=== PATIENT | female | born 1955 | race Caucasian/White ===

== ENCOUNTER 2019-03-27 18:41 | Observation (INO) ==
[2019-03-27] MEDS ORDERED: Ondansetron 4 MG/2 ML VIAL IVP PRN (23:21)
[2019-03-27] MEDS ORDERED: Naloxone 0.4 MG/ML INJ IVP PRN (23:21)
[2019-03-27] MEDS ORDERED: *HR* LORazepam 2 MG/ML VIAL IVP PRN (23:28)
[2019-03-28] MEDS: Insulin LISPRO 300 UNITS/3 ML VIAL SQ SCH ×5 (00:15→21:56)
--- NOTE | 2019-03-28 01:59 | Internal Med History&Physical ---
Date of Encounter: 03/27/19 Time of Encounter: 20:30 Internal Medicine - H&P: HPI Chief complaint: palpitations Admitted From: Hospital to Hospital Transfer Plans for Post Hospital Care: Home History of present illness: Ms. Hayes is a 63 year old female who presents in transfer from [facility] for concerns of atrial flutter with rapid ventricular response. Patient noted having palpitations, lightheadedness and dizziness earlier tonight. She therefore went to the ER where she was found to have atrial flutter with rapid ventricular response. She was placed on Cardizem drip and transferred to [facility] for ongoing care. Upon my assessment of the patient, patient feels much better. She remains in atrial flutter, but she is rate controlled with heart rate in the 80s and 90s. She denies any chest pain, shortness of breath, fevers, cough, shortness of breath, vomiting, or diarrhea. Patient states she has a history of abnormal heart rhythm and was seeing a clerical proofreader in [place]. She actually has a loop recorder in place. She also states she has a history of cirrhosis but that it "resolved". She denies any history of alcohol abuse, ANGELO cirrhosis, or Tylenol toxicity. She used to see a gastroentereologist in [place], but she has not seen anybody in quite some time. She recently moved to [facility] and wants to establish with [facility]. Unfortunately, we have no old records regarding her prior workup. Past Med Surg Social Fam HX - Past Medical History Attestation: Yes The following information was validated with the patient. Source: patient, other (limited records from [place]) Medical history: arthritis, asthma, atrial fibrillation, cirrhosis, CHF, COPD, coronary artery disease, CVA, diabetes, hyperlipidemia, hypertension, renal disease, seizures, other Additional medical history: SLEEP APNEA, [place] Psychiatric history: anxiety, depression - Past Surgical History Surgical History: other Additional surgical history: Loop Recorder - Social History Smoking Status: Former smoker Smokeless Tobacco Status: No Alcohol use: none Drug use: none Current living situation: Home, With Family Activity Level: Independent ambulation Recent Out of Country Travel Within the Last 8 Weeks: No - Family History Mother Living Status: Hx Family Cardiac Disorders: Yes Hx Family Respiratory Disorders: Yes Hx Family Cancer: Yes Hx Family GI Disorders: Yes Hx Family Endocrine Disorder: Yes Internal Medicine - H&P: Meds Atorvastatin [Lipitor] 40 mg PO HS 01/29/19 [History] Duloxetine HCl [Cymbalta] 60 mg PO BID 01/29/19 [History] Ferrous Sulfate [Iron] 325 mg PO DAILY 01/29/19 [History] Furosemide [Lasix] 40 mg PO BID 01/29/19 [History] Insulin Degludec [Tresiba Flextouch U-200] 80 unit SQ DAILY 01/29/19 [History] Insulin LISPRO [Humalog] 4 unit SQ TID 01/29/19 [History] LORazepam [Ativan] 1 mg PO HS 01/29/19 [History] Linagliptin [Tradjenta] 5 mg PO DAILY 01/29/19 [History] Melatonin/Pyridoxine HCl (B6) [Melatonin 3 mg Tablet] 1 each PO HS 01/29/19 [History] Montelukast [Singulair] 10 mg PO DAILY 01/29/19 [History] Pantoprazole Sodium 40 mg PO DAILY 01/29/19 [History] Ropinirole HCl [Requip] 2 mg PO TID 01/29/19 [History] Solifenacin Succinate [Vesicare] 20 mg PO DAILY 01/29/19 [History] Topiramate [Topamax] 100 mg PO DAILY 01/29/19 [History] HYDROcodone/Acet 5/325 mg [[place] 5-325 mg] 1 tab PO Q6H PRN 03/01/19 [History] LevETIRAcetam [Keppra] 500 mg PO BID 03/01/19 [History] Metoprolol Succinate 50 mg DAILY 03/01/19 [History] Allergy/AdvReac Type Severity Reaction Status Date / Time divalproex sodium Allergy Rash Verified 03/27/19 16:42 [From Depakote] gabapentin [From Neurontin] Allergy Hallucinati Verified 03/27/19 16:42 ng Iodinated Contrast- Oral and Allergy Hives Verified 03/27/19 16:42 IV Dye levofloxacin [From Levaquin] Allergy Hallucinati Verified 03/27/19 16:42 ng naproxen Allergy Itching Verified 03/27/19 16:42 Nefazodone [From Serzone] Allergy Hives Verified 03/27/19 16:42 Penicillins Allergy Hives Verified 03/27/19 16:42 pregabalin [From Lyrica] Allergy Fainting Verified 03/27/19 16:42 Tizanidine [From Zanaflex] Allergy Difficulty Verified 03/27/19 16:42 Swallowing ibuprofen AdvReac Gastrointestinal Verified 03/27/19 16:42 Upset - Constitutional Constitutional: no chills, no fever(s), no night sweats - EENT Eyes: no blurry vision, no change in vision Ears: no ear pain, no tinnitus Nose, mouth and throat: no nasal congestion, no sinus pressure, no sore throat - Cardiovascular Cardiovascular ROS IM: irregular heart rhythm, lightheadedness, palpitations, no chest pain, no dyspnea, no dyspnea on exertion, no paroxysmal nocturnal dyspnea, no syncope - Respiratory Respiratory: no cough, no hemoptysis, no chest congestion, no excessive phlegm production, no change in phlegm color - Gastrointestinal Gastrointestinal: no abdominal pain, no diarrhea, no hematemesis, no hematochezia, no melena, no nausea, no vomiting - Genitourinary Genitourinary: no dysuria, no flank pain, no hematuria - Musculoskeletal Musculoskeletal ROS IM: no arthralgias, no back pain - Integumentary Integumentary IM: no rash, no jaundice - Neurological Neurological ROS: dizziness, no focal weakness, no frequent falls, no headache(s) - Psychiatric Psychiatric: no anxiety, no depression - Endocrine Endocrine IM: no polydipsia, no polyphagia, no polyuria - Hematologic/Lymphatic Hematologic/Lymphatic: easy bruising - Allergic/Immunologic Allergic/Immunologic: no wheezing, no GI upset with certain foods - Constitutional Vitals: Temp Pulse Resp BP Pulse Ox 98.9 F 90 16 111/72 95 03/28/19 01:08 03/28/19 01:08 03/28/19 01:08 03/28/19 01:08 03/28/19 01:08 General appearance: Present: cooperative, A&O X 3, pleasant, no acute distress, answers questions appropriately Exam: see below - Head Head exam: Present: atraumatic, normal inspection - Eye Eye exam: Present: EOMI, PERRL. Absent: scleral icterus Pupils: Present: normal accommodation - ENT ENT exam: Present: mucous membranes dry, normal exam, normal oropharynx - Neck Neck exam general surgery: Present: full ROM, supple, trachea midline. Absent: tenderness, nuchal rigidity, thyromegaly - Respiratory Respiratory exam: Present: CTAB. Absent: chest wall tenderness, rales, respiratory distress, rhonchi, wheezes - Cardiovascular Cardiovascular exam: Present: distant heart sounds, irregular rhythm, systolic murmur. Absent: diastolic murmur, rubs, tachycardia - GI/Abdominal GI/Abdominal exam: Present: normal bowel sounds, soft. Absent: guarding, hep atomegaly, mass, rebound, splenomegaly, tenderness - Extremities Exam Extremities exam: Present: normal capillary refill, pedal edema (1-2+), warm, radial pulses palpable and symmetrical. Absent: calf tenderness, tenderness - Back Exam Back exam: Present: normal inspection. Absent: CVA tenderness (L), CVA tenderness (R) - Neurological Exam Neurological exam: Present: alert, CN II-XII intact, oriented X3, reflexes normal, no focal deficits, strengths equal and symetr throughout - Psychiatric Psychiatric exam: Present: normal affect, normal mood - Skin Skin exam: Present: dry, intact Additional comments: ecchymoses on arms Internal Med - H&P Results - Labs Labs: Cardiac Enzymes 03/27/19 Range/Units 23:49 Troponin I < 0.03 (< 0.04) ng/mL I reviewed her labs from [place] and include the following: WBC 7.0 Hemoglobin 12.0 Hematocrit 37.1 Platelets 96 PT 12.9 INR 1.1 Sodium 141 Potassium 4.2 Chloride 108 Carbon dioxide 27 BUN 52 Creatinine 1.46 Glucose 198 Troponin negative - EKG Data -: EKG Interpreted by Myself - EKG Data Prior EKG available for review: no EKG comments: 03/28/19 02:07 Atrial flutter w RVR - Diagnostic Studies Chest x-ray Status: image reviewed by me (negative) - Assessment and Plan (1) Atrial flutter with rapid ventricular response Current Visit: Yes Status: Acute Assessment and plan: 1. Currently rate controlled on cardizem drip; continue and wean drip for rate control. 2. Monitor electrolytes and correct as necessary. 3. Trend troponins and EKG's. 4. ECHO. 5. Consult cardiology. 6. Records release for prior cardiac work-up. 7. Given history of cirrhosis and concern for bleeding risk, anti-coagulation for atrial fib/flutter needs to be carefully considered. Need further information and records before m[facility] AC can be recommended. (2) Cirrhosis Current Visit: Yes Status: Chronic Assessment and plan: 1. Hepatic panel ordered, hepatits serologies ordered. 2. Request for old records from prior GI work-up in [place]. 3. Liver ultrasound ordered. Qualifiers: Hepatic cirrhosis type: unspecified hepatic cirrhosis Ascites presence: without ascites Qualified Code(s): K74.60 - Unspecified cirrhosis of liver (3) DM type 2 (diabetes mellitus, type 2) Current Visit: Yes Status: Chronic Assessment and plan: 1. Hold oral home meds. 2. Monitor glucose and order SSI with dose adjustment as necessary. Qualifiers: Diabetes mellitus mcfp insulin use: with mcfp use Diabetes mellitus complication detail: with chronic kidney disease Chronic kidney disease stage: stage 3 (moderate) Qualified Code(s): E11.22 - Type 2 diabetes mellitus with diabetic chronic kidney disease; N18.3 - Chronic kidney disease, stage 3 (moderate); Z79.4 - penitentiary (current) use of insulin (4) DVT prophylaxis Current Visit: Yes Status: Acute Assessment and plan: 1. EPCD's.
[2019-03-28 06:36] LABS: Hemoglobin 11.6 g/dL (11.5-15.4); Immature Granulocytes % 0.3 % (0-4)
[2019-03-28 06:38] LABS: Basophils % 0.1 %; Eosinophils % 0.6 %; Hematocrit 36.8 % (35.3-44.9); Immature Platelets 4.1 % (1.1-6.1); Lymphocytes # 1.7 K/mcL (0.6-4.6); Lymphocytes % 23.8 %; Mean Corpuscular HGB Conc 31.5 g/dL (31.6-35.5); Mean Corpuscular Volume 101.7 fL (83.0-100.0); Mean Platelet Volume 11.6 fL (9.4-12.4); Monocytes # 0.6 K/mcL (0.0-1.3); Monocytes % 8.9 %; Neutrophils # 4.8 K/mcL (1.6-8.9); Red Blood Count 3.62 M/mcL (3.82-4.97); Red Cell Distribution Width 13.2 % (11.5-14.5); Segmented Neutrophils % 66.3 %; White Blood Count 7.2 K/mcL (4.3-11.1)
[2019-03-28 06:42] LABS: Platelet Count 84 K/mcL (140-400)
[2019-03-28 06:43] LABS: Platelet Estimate Decreased (Normal)
[2019-03-28 06:48] LABS: INR 1.1; Prothrombin Time 12.3 Seconds (9.4-12.1)
[2019-03-28 06:50] LABS: Activated Partial Thrombo Time 27.4 Seconds (26.0-36.0)
[2019-03-28 06:58] LABS: Albumin 3.4 g/dL (3.5-5.7); Albumin/Globulin Ratio 1.4 (1.1-2.2); Bilirubin,Direct 0.1 mg/dL (0.0-0.2); Bilirubin,Indirect 0.3 mg/dL (0.0-1.2); Bilirubin,Total 0.4 mg/dL (0.3-1.0); Calcium 8.8 mg/dL (8.6-10.3); Chol/HDL Ratio 3.2 (0-4.9); Globulin 2.5 g/dL (2.4-3.5); Magnesium 2.5 mg/dL (1.6-2.6); Phosphorous 3.4 mg/dL (2.7-4.5); Total Protein 5.9 g/dL (6.4-8.9)
[2019-03-28 07:26] LABS: Hepatitis B Surface Antigen Nonreactive (Nonreactive)
[2019-03-28 07:55] LABS: Hepatitis B Core IgM Nonreactive (Nonreactive); Hepatitis C Virus Antibody Nonreactive (Nonreactive)
[2019-03-28 07:57] LABS: Hepatitis A Antibody IgM Nonreactive (Nonreactive)
[2019-03-28] MEDS: Aspirin 81 MG TAB.CHEW PO SCH (08:12)
--- NOTE | 2019-03-28 08:49 | Cardiology Consult Note ---
<Jennie Rojas - Last Filed: 03/28/19 11:33> Date of Encounter: 03/28/19 Time of Encounter: 08:47 Assessment and Plan (1) Atrial flutter with rapid ventricular response Current Visit: Yes Status: Acute Due to history of obstructive sleep apnea and inability to be on full anticoagulation secondary to multiple falls, there is high likelihood atrial fib/flutter will resume. Cardioversion is not recommended and patient will be medically managed. - continue ASA 81 mg - recommend repeat sleep study as outpatient with advice for finding most appropriate mask fit - will switch to PO diltiazem HCl 30 mg q6h from diltiazem IV. - if patient tolerates new dose of diltiazem today, we will change dose to diltiazem 120 mg daily tomorrow. - ordered Lasix 40 mg IVP for today plus PO Lasix 40 mg bid to start tomorrow morning. - set up followup with outpatient camera engineer after discharge; [facility] verified by phone this is Dr. Albert Pedro. - Last cardiology appointment was July 13, 2018. There have been no-show and cancelled appointments since then, but patient is still listed as being under Dr Pedro's care. - have requested last office note from Dr. Pedro's office, as he and his nurse are not back in the office until tomorrow. Discussion w patient/family: The assessment and plan as outlined above was discussed with the patient and/or family members who expressed understanding and agreement. All questions were answered. Thank you for involving us in the care of your patient. Please call with any questions. History of Present Illness Consult date: 03/28/19 Requesting physician: Ayo Johnston Consult reason: atrial flutter/RVR Chief complaint: palpitations History of present illness: Ms. Hayes is a 63 year old female who presented to [facility] from [place] yesterday for atrial flutter with RVR in context of atrial fibrillation, CVA, HTN. She woke up yesterday around 0300 with heartburn, nausea, and a fluttering feeling in chest. She also felt "stuffy" in chest. These symptoms had never happened to her before. She thought it was her afib again and EMS was called. In ambulance, she had 2 L O2. The episode lasted between 2-4 hours. At [place], she was placed on Cardizem drip. EKG at 1456 yesterday showed sinus tachycardia with rate of 126, axis -19, ME interval 144, QT/QTc 302/470. At 1825, she was found to additionally have 2-3:1 block with atrial flutter. She was transferred to [facility] for continuing care. She has stayed in atrial flutter but has been rate controlled. Heart rate has been in 80s and 90s during this stay. She reports that she was diagnosed with atrial fibrillation in [place] perhaps 12 years ago. She currently has a loop recorder which she thinks was placed in September for possible TIA. Since last cardiology appointment with Dr. Pedro was July 13, 2018, it would seem this loop recorder is not being managed. Patient was unsure why she had loop recorder implanted. She is currently not on full anticoagulation due to nearly daily falls with concern for head injury. She reports she has not been falling as much in past six months, as she uses a walker and stays close to [place]. Now she estimates she falls 4- 5x/month, possibly more. CXR on 03/27 showed no acute process. Echocardiogram this morning showed LVEF of 60%, moderately dilated RA, mild concentric LVH, RV with normal structure and function, mild-moderate mitral regurgitation, mild tricuspid regurgitation, moderate pulmonary hypertension with estimated RSVP of 58 mmHg. She has had x2 negative troponins at <0.03. [id number] today was 7 with points for CHF, HTN, Diabetes, former CVA, CAD. However, patient is not candidate for full anticoagulation due to history of multiple recent falls. Past Med Surg Social Fam HX - Past Medical History Medical history: arthritis, asthma, atrial fibrillation, cirrhosis, CHF, COPD, coronary artery disease, CVA, diabetes, hyperlipidemia, hypertension, renal disease, seizures, other Additional medical history: SLEEP APNEA, [place] Psychiatric history: anxiety, depression - Past Surgical History Surgical History: other Additional surgical history: Loop Recorder - Social History Smoking Status: Former smoker Smokeless Tobacco Status: No Alcohol use: none Drug use: none - Family History Mother Living Status: Hx Family Cardiac Disorders: Yes Hx Family Respiratory Disorders: Yes Hx Family Cancer: Yes Hx Family GI Disorders: Yes Hx Family Endocrine Disorder: Yes Medications and Allergies Atorvastatin [Lipitor] 40 mg PO HS 06/30/19 [History] Duloxetine HCl [Cymbalta] 60 mg PO BID 01/29/19 [History] Ferrous Sulfate [Iron] 325 mg PO DAILY 01/29/19 [History] Furosemide [Lasix] 40 mg PO BID 01/29/19 [History] Insulin Degludec [Tresiba Flextouch U-200] 80 unit SQ DAILY 01/29/19 [History] Insulin LISPRO [Humalog] 0 unit SQ TID 01/29/19 [History] LORazepam [Ativan] 0.5 mg PO HS 01/29/19 [History] Linagliptin [Tradjenta] 5 mg PO DAILY 01/29/19 [History] Melatonin/Pyridoxine HCl (B6) [Melatonin 3 mg Tablet] 1 each PO HS 01/29/19 [History] Montelukast [Singulair] 10 mg PO DAILY 01/29/19 [History] Ropinirole HCl [Requip] 2 mg PO TID 01/29/19 [History] Solifenacin Succinate [Vesicare] 5 mg PO DAILY 01/29/19 [History] Topiramate [Topamax] 100 mg PO BID 01/29/19 [History] HYDROcodone/Acet 5/325 mg [[place] 5-325 mg] 1 tab PO Q6H PRN 03/01/19 [History] LevETIRAcetam [Keppra] 500 mg PO BID 03/01/19 [History] Metoprolol Tartrate [Lopressor] 50 mg PO DAILY #0 03/01/19 [History] Albuterol Sulfate [Proventil Inhaler] 2 puff IH QID PRN 03/28/19 [History] Fluticasone/Salmeterol [Advair Hfa 115-21 Mcg Inhaler] 2 puff IH Q12H 03/28/19 [History] Meclizine [Antivert] 12.5 mg PO TID 03/28/19 [History] Vit C/E/Zn/Coppr/Lutein/Zeaxan [Preservision Areds 2 Softgel] 1 cap PO BID 03/28/19 [History] Allergy/AdvReac Type Severity Reaction Status Date / Time divalproex sodium Allergy Rash Verified 03/27/19 16:42 [From Depakote] gabapentin [From Neurontin] Allergy Hallucinati Verified 03/27/19 16:42 ng Iodinated Contrast- Oral and Allergy Hives Verified 03/27/19 16:42 IV Dye levofloxacin [From Levaquin] Allergy Hallucinati Verified 03/27/19 16:42 ng naproxen Allergy Itching Verified 03/27/19 16:42 Nefazodone [From Serzone] Allergy Hives Verified 03/27/19 16:42 Penicillins Allergy Hives Verified 03/27/19 16:42 pregabalin [From Lyrica] Allergy Fainting Verified 03/27/19 16:42 Tizanidine [From Zanaflex] Allergy Difficulty Verified 03/27/19 16:42 Swallowing ibuprofen AdvReac Gastrointestinal Verified 03/27/19 16:42 Upset All Systems Review: The remainder of the systems were reviewed and are negative - Constitutional Constitutional: fatigue - EENT Nose, mouth and throat: no epistaxis - Cardiovascular Cardiovascular: dyspnea on exertion, leg edema, no chest pain at rest, no chest pain with exertion, no dyspnea at rest, no palpitations - Respiratory Respiratory: dyspnea - Gastrointestinal Gastrointestinal: no nausea - Genitourinary Genitourinary: no dysuria - Musculoskeletal Musculoskeletal: no arthralgias - Neurological Neurological: other (neuropathy) - Psychiatric Psychiatric: no anxiety - Hematological/Lymphatic Hematologic/Lymphatic: no easy bleeding, no easy bruising Physical Examination Vital Signs, Last 4 Hours Temp Pulse Resp BP Pulse Ox 03/28/19 07:49 98.6 F 79 22 115/59 95 03/28/19 04:54 97.6 F 93 14 107/97 96 Other: GENERAL: alert, conversant HEENT: anicteric, clear sclerae, pupils equal and reactive to light. NECK: Carotid bruits not heard. CV: heart sounds somewhat distant due to body habitus, irregular rhythm, regular rate. No murmurs heard RESPIRATORY: clear to auscultation bilaterally, no wheezes, rhonchi, or rales heard GI: soft, nontender, nondistended. No aortic bruits heard EXTREMITIES: capillary refill <2 seconds, dorsalis pedis pulses 2+/4 bilaterally, warm, acyanotic, tender to palpation. Nonpitting edema noted to level of knees bilaterally Results 03/28/19 05:45 03/28/19 05:45 Lab Results 03/27/19 03/28/19 03/28/19 23:49 05:45 05:45 WBC 7.2 Hgb 11.6 Hct 36.8 Plt Count 84 L INR 1.1 APTT 27.4 Sodium Potassium Chloride Carbon Dioxide BUN Creatinine Glucose Calcium Magnesium Total Bilirubin AST ALT Alkaline Phosphatase Troponin I < 0.03 03/28/19 03/28/19 05:45 05:45 WBC Hgb Hct Plt Count INR APTT Sodium 144 Potassium 4.0 Chloride 110 H Carbon Dioxide 26 BUN 54 H Creatinine 1.49 H Glucose 195 H Calcium 8.8 Magnesium 2.5 Total Bilirubin 0.4 AST 13 ALT 11 Alkaline Phosphatase 87 Troponin I < 0.03 Consult Discharge Plan - Plan Referrals: Namrata Salazar, KALPANA [Primary Care Provider] - <Marlys Levine - Last Filed: 03/28/19 12:59> Date of Encounter: 03/28/19 - Attending Attestation I examined this patient and my medical decision-making was reviewed with the Resident Physician. I agree with the documented findings, disposition and treatment plan as described. Ms. Hayes presents as a transfer from [place] with AFL RVR. Patient reports a history of atrial fibrillation being followed by a Cardiolo gist at [facility], last seen about 1 year ago per report. She developed palpitations prompting her ER evaluation. She is now denying symptoms of chest pain or palpitations. Denies history of CAD but endorses CVA 2004, HTN, HPL, CKD, CELIA non compliant with treatment. Reports having a LOOP recorder placed sometime in September while she was in a nursing facility - unsure why placed or who placed it. At the bedside the patient is AAOx3, NAD, conversant. Breathing comfortably on RA VS reviewed - HR 90's, SBP 110's, afebrile Exam demonstrates irregularly irregular heart rhythm, normal rate, no appreciable murmur or gallop Lung sounds are clear, mild BLE edema ECG on admission demonstrates AFL RVR, no ischemic findings. Echo report reviewed. Impression/Plan: 1. Atrial flutter with RVR: Known history of AFIB. Etiology of RVR unclear, may be related to mild fluid congestion. Recommend a dose of IV lasix. Will stop cardizem gtt and change to short acting cardizem in anticipation of long acting prior to discharge. Plan for rate control strategy since low likelihood of shelter maintenance of sinus rhythm. Discussed role of AC in setting of AF/AFL (CHADSVASC 5). Patient states she was on both Eliquis and Xarelto in the past but taken off due to falls. She reports falling due to instability several times a month. For now it appears reasonable to continue low dose aspirin with careful watch on platelet count. She can follow up with her primary Enterprise Business Architect at [facility] for further recommendations. 2. CELIA: Patient states she tolerated CPAP but not BIPAP. She is open to repeat sleep study as outpatient. 3. HTN: Appears controlled. 4. Heart arrhythmia: Patient had a LOOP recorder placed at an outside facility per her report. She is unclear of the details about who placed it or why. She is also not sure if it was her primary camera engineer or not. Nevertheless, we discussed having her follow up with her primary camera engineer to help clarify. Assessment and Plan Discussion w patient/family: The assessment and plan as outlined above was discussed with the patient and/or family members who expressed understanding and agreement. All questions were answered. Thank you for involving us in the care of your patient. Please call with any questions. History of Present Illness History of present illness: Ms. Hayes is a 63 year old female All Systems Review: The remainder of the systems were reviewed and are negative Physical Examination Vital Signs, Last 4 Hours Pulse Resp BP Pulse Ox 03/28/19 11:44 82 18 137/80 97 Results 03/28/19 05:45 03/28/19 05:45 Lab Results 03/27/19 03/28/19 03/28/19 23:49 05:45 05:45 WBC 7.2 Hgb 11.6 Hct 36.8 Plt Count 84 L INR 1.1 APTT 27.4 Sodium Potassium Chloride Carbon Dioxide BUN Creatinine Glucose Calcium Magnesium Total Bilirubin AST ALT Alkaline Phosphatase Troponin I < 0.03 03/28/19 03/28/19 05:45 05:45 WBC Hgb Hct Plt Count INR APTT Sodium 144 Potassium 4.0 Chloride 110 H Carbon Dioxide 26 BUN 54 H Creatinine 1.49 H Glucose 195 H Calcium 8.8 Magnesium 2.5 Total Bilirubin 0.4 AST 13 ALT 11 Alkaline Phosphatase 87 Troponin I < 0.03
--- NOTE | 2019-03-28 08:54 | Internal Med Progress Note ---
<Mandie Tolliver - Last Filed: 03/28/19 13:16> Hospitalist Progress Note - Encounter Date of Encounter: 03/28/19 Time of Encounter: 09:30 - Exam Vitals: Temp Pulse Resp BP Pulse Ox 98.6 F 82 18 137/80 97 03/28/19 07:49 03/28/19 11:44 03/28/19 11:44 03/28/19 11:44 03/28/19 11:44 - Assessment and Plan (1) DM type 2 (diabetes mellitus, type 2) Current Visit: Yes Status: Chronic (2) Atrial flutter with rapid ventricular response Current Visit: Yes Status: Acute (3) Cirrhosis Current Visit: Yes Status: Chronic (4) DVT prophylaxis Current Visit: Yes Status: Acute - Time Spent with Patient Total time spent is greater than 50% in coordination of care (as documented) at patient's floor/unit and/or counseling patient: Internal Medicine: Result - Labs CBC & Chem 7: 03/28/19 05:45 03/28/19 05:45 Labs: Short CBC 03/28/19 Range/Units 05:45 WBC 7.2 (4.3-11.1) K/mcL Hgb 11.6 (11.5-15.4) g/dL Hct 36.8 (35.3-44.9) % Plt Count 84 L (140-400) K/mcL Neutrophils # 4.8 (1.6-8.9) K/mcL BMP 03/28/19 05:45 Sodium 144 Potassium 4.0 Chloride 110 H Carbon Dioxide 26 BUN 54 H Creatinine 1.49 H Glucose 195 H Calcium 8.8 Cardiac Enzymes 03/27/19 03/28/19 03/28/19 Range/Units 23:49 05:45 12:05 Troponin I < 0.03 < 0.03 < 0.03 (< 0.04) ng/mL Liver Function 03/28/19 Range/Units 05:45 Total Bilirubin 0.4 (0.3-1.0) mg/dL Direct Bilirubin 0.1 (0.0-0.2) mg/dL AST 13 (13-39) Units/L ALT 11 (7-52) Units/L Alkaline Phosphatase 87 (34-104) Units/L Albumin 3.4 L (3.5-5.7) g/dL - ABG Interpretation ABG results: PT/INR, D-dimer PT 12.3 Seconds (9.4-12.1) H 03/28/19 05:45 - Impressions Impressions Liver Ultrasound 03/28/19 11:00 IMPRESSION: Cholecystectomy. D/ / Lei Beltran MD / Lei Beltran MD Interpreting Provider: Lei Beltran MD Echocardiogram 03/28/19 23:21 Impressions: LVEF 60%. Indeterminate diastolic function. Normal right ventricular structure and function. Moderately dilated right atrium. Mild-moderate mitral regurgitation. Mild tricuspid regurgitation. Moderate pulmonary hypertension.Estimated RVSP is 58 mmHg. Left Ventricular Wall Motion: Rest Echo Findings All wall segments showed normal motion. Findings: Study Quality * Technically adequate exam. ECG Findings * Atrial flutter. Left Ventricle * LVEF 60%. * Indeterminate diastolic function. * Mild concentric left ventricular hypertrophy. * Normal LV chamber size. Right Ventricle * Normal right ventricular structure and function. Left Atrium * Mildly dilated left atrium. Right Atrium * Moderately dilated right atrium. Interatrial Septum * Aneurysmal interatrial septal. Aortic Valve * Trileaflet aortic valve. * Normal aortic valve structure. * No aortic regurgitation. * No aortic stenosis. Mitral Valve * Mild mitral annular calcification * Mild-moderate mitral regurgitation. * No mitral stenosis. Tricuspid Valve * Mild tricuspid regurgitation. * Moderate pulmonary hypertension.Estimated RVSP is 58 mmHg. * * Estimated RA pressure is 10 mmHg. Pulmonic Valve * Pulmonic valve not well visualized. Aorta * Normally sized aortic root. Pericardium * The pericardium appears normal. IVC * The IVC is dilated. Pulmonary Artery * Pulmonary artery not well visualized. Consult Discharge Plan - Plan Referrals: Namrata Salazar, MANAGER [employer]VENUE [Primary Care Provider] - - Attending Attestation I saw evaluated and examined this patient and reviewed objective data including labs and my medical decision-making was reviewed with the Resident Physician, Layla Rodrigues. I agree with the documented findings, disposition and treatment plan as described except to any changes set forth below. We independently had [id number] contact with the patient. Patient feels better this morning. Heart rate has improved. Patient was on 2.5 mg/ hr Cardizem drip when I evaluated her with her heart rate being better controlled. She reports that the implantable loop recorder has been in place for about 6 months now and she has not been followed by cardiology in this time period. She denies any chest pain or dizziness. She has a history of recurrent falls most likely related to peripheral neuropathy and as such is not on any anticoagulation. She is on aspirin 81 mg daily. We will transition her to oral Cardizem. Monitor heart rate. If heart rate remains well controlled, possible discharge tomorrow. We will consult physical therapy for evaluation in the meantime. Cardiology consult in progress. Will obtain records from her deputy head's office. Patient now lives in [place] and would like to set up care with cardiology there. We will arrange for this at discharge. <Layla Rodrigues I - Last Filed: 03/28/19 15:41> Hospitalist Progress Note - Encounter Date of Encounter: 03/28/19 - Subjective Interval History: Ms. Hayes presents as a transfer from [place] with [facility] R[facility]. Patient reports a history of atrial fibrillation not on anticoagulant due to fall risk . patient noted palpitation dizziness and chest heaviness before admission . today patient was seen and examined she was doing well . resting comfortable in her chair dominick es chest pain or SOB , denies nausea vomiting denies fever, chills, headche. no numbness or tingling sensation - Exam Vitals: Temp Pulse Resp BP Pulse Ox 98.6 F 79 22 115/59 95 03/28/19 07:49 03/28/19 07:49 03/28/19 07:49 03/28/19 07:49 03/28/19 07:49 Exam: General - Alert and oriented x 3, no acute distress and appears comfortable HEENT - Conjunctiva clear, no nasal or oral mucosal lesions/ulcerations Heme/Lymph - No cervical or supraclavicular lymph node enlargement or tenderness. No pallor. Heart - irregular irregular rhythm without murmurs, clicks or rubs. No peripheral edema. Lungs - Unlabored breathing, clear to auscultation bilaterally without wheezes or crackles; no decrease in chest expansion Gastrointestinal - Soft, nontender, nondistended. Unable to palpate any hepatosplenomegaly Neurological - Gait normal, muscle strength 5/5 in all four extremities, sensa tion intact Musculoskeletal - Full ROM, no joint tenderness psych - normal mood and behavior - Assessment and Plan (1) Atrial flutter with rapid ventricular response Current Visit: Yes Status: Acute Assessment and Plan: -Atrial flutter with RVR, Etiology unclear , she is still in flutter -implantable loop recorder has been in place for about 6 months now and she has not been followed by cardiology i -rate controlled with Cardizem drips 2.5 mg/ hr..will switch her to oral cardizim 30 mg QID -troponin is negative twice , continue telemetry monitoring -echo show EF of 60% intermediate diastolic dysfunction . moderate PH and RA dialtion -Patient states she was on both Eliquis and Xarelto in the past but taken off due to falls. She reports falling due to instability several times a month. she is - low dose aspirin 81 mg -Her HAS BLED score is 6 and CHADSVASC 5 -have requested last office note from Dr. Pedro's her deputy head office (2) Hypertension Current Visit: Yes Status: Acute Assessment and Plan: this is a chronic condition , continue home med (3) Diabetes Current Visit: Yes Status: Acute Assessment and Plan: her blood glucose level is 195 continue accu check , continue low dose SSI DVT Prophylaxis: aspirin 81 mg - Time Spent with Patient Total time spent is greater than 50% in coordination of care (as documented) at patient's floor/unit and/or counseling patient: Internal Medicine: Result - Labs CBC & Chem 7: 03/28/19 05:45 03/28/19 05:45 Labs: Short CBC 03/28/19 Range/Units 05:45 WBC 7.2 (4.3-11.1) K/mcL Hgb 11.6 (11.5-15.4) g/dL Hct 36.8 (35.3-44.9) % Plt Count 84 L (140-400) K/mcL Neutrophils # 4.8 (1.6-8.9) K/mcL BMP 03/28/19 05:45 Sodium 144 Potassium 4.0 Chloride 110 H Carbon Dioxide 26 BUN 54 H Creatinine 1.49 H Glucose 195 H Calcium 8.8 Cardiac Enzymes 03/27/19 03/28/19 Range/Units 23:49 05:45 Troponin I < 0.03 < 0.03 (< 0.04) ng/mL Liver Function 03/28/19 Range/Units 05:45 Total Bilirubin 0.4 (0.3-1.0) mg/dL Direct Bilirubin 0.1 (0.0-0.2) mg/dL AST 13 (13-39) Units/L ALT 11 (7-52) Units/L Alkaline Phosphatase 87 (34-104) Units/L Albumin 3.4 L (3.5-5.7) g/dL - ABG Interpretation ABG results: PT/INR, D-dimer PT 12.3 Seconds (9.4-12.1) H 03/28/19 05:45 <Mandie Tloliver - Last Filed: 03/28/19 13:16> (1) DM type 2 (diabetes mellitus, type 2) Qualifiers: 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
[2019-03-28] MEDS ORDERED: Furosemide 40 MG/4 ML VIAL IVP ONE (10:44)
[2019-03-28] MEDS: dilTIAZem HCl 60 MG TABLET PO SCH ×3 (12:59→21:52)
[2019-03-28] MEDS: rOPINIRole 1 MG TABLET PO SCH ×2 (14:48→21:51)
--- NOTE | 2019-03-28 16:20 | Electrocardiograph Report ---
[address] [address] Test Date: 2019-03-28 Pat Name: Noemi Hayes Department: 111 Room: 2NE23 Gender: F Rate Examiner: [id number] : 1955 Requested By: Ayo Johnston Order Number: [id number] Reading MD: Maykel Mahajan Measurements Intervals [place] Rate: 90 P: MD: 0 QRS: -18 QRSD: 102 T: -63 QT: 373 QTc: 420 Interpretive Statements ATRIAL FLUTTER/TACHYCARDIA NONSPECIFIC T-WAVE ABNORMALITY ABNORMAL RHYTHM ECG Electronically Signed On 03-28-2019 16:18:20 EDT by Maykel Mahajan
[2019-03-28] MEDS: Budesonide/Formoterol 80/4.5 1 PUFF INH IH SCH (20:02)
[2019-03-28] MEDS ORDERED: Melatonin 3 MG TABLET PO SCH (21:00)
[2019-03-28] MEDS ORDERED: *HR* LORazepam 0.5 MG TABLET PO SCH (21:00)
[2019-03-28] MEDS: Topiramate 100 MG TABLET PO SCH (21:50)
[2019-03-28] MEDS: levETIRAcetam 250 MG TABLET PO SCH (21:53)
[2019-03-29 05:25] LABS: Basophils % 0.2 %; Mean Corpuscular HGB Conc 31.3 g/dL (31.6-35.5); Red Cell Distribution Width 13.2 % (11.5-14.5)
[2019-03-29 05:27] LABS: Eosinophils # 0.1 K/mcL (0.0-0.6); Eosinophils % 1.4 %; Hematocrit 38.4 % (35.3-44.9); Immature Granulocytes % 0.2 % (0-4); Immature Platelets 3.7 % (1.1-6.1); Lymphocytes # 1.7 K/mcL (0.6-4.6); Lymphocytes % 26.1 %; Mean Corpuscular Hemoglobin 32.3 pg (28.0-33.3); Mean Corpuscular Volume 103.2 fL (83.0-100.0); Mean Platelet Volume 11.4 fL (9.4-12.4); Monocytes # 0.5 K/mcL (0.0-1.3); Neutrophils # 4.2 K/mcL (1.6-8.9); Red Blood Count 3.72 M/mcL (3.82-4.97); Segmented Neutrophils % 64.1 %; White Blood Count 6.5 K/mcL (4.3-11.1)
[2019-03-29 05:30] LABS: Platelet Count 84 K/mcL (140-400)
[2019-03-29 05:32] LABS: INR 1.1; Prothrombin Time 12.6 Seconds (9.4-12.1)
[2019-03-29 05:44] LABS: Calcium 8.8 mg/dL (8.6-10.3); Potassium 4.1 mEq/L (3.5-5.1)
[2019-03-29] MEDS: Budesonide/Formoterol 80/4.5 1 PUFF INH IH SCH ×2 (07:43→19:23)
--- NOTE | 2019-03-29 08:08 | Cardiology Progress Note ---
<Jennie Rojas - Last Filed: 03/29/19 11:19> Date of Encounter: 03/29/19 Time of Encounter: 10:45 Assessment and Plan (1) Atrial flutter with rapid ventricular response Current Visit: Yes Status: Acute Due to history of obstructive sleep apnea and inability to be on full anticoagulation secondary to multiple falls, there is high likelihood atrial fib/flutter will resume. Cardioversion is not recommended and patient will be medically managed. She is currently well-controlled and asymptomatic. Signing off. - continue ASA 81 mg - continue PO Lasix 40 mg BID - will not restart propafenone - patient's diltiazem today was changed to diltiazem 120 mg daily; continue at this dose - recommend repeat sleep study as outpatient with mask fit counseling - recommend followup with outpatient professional nursing tutor after discharge; this is Dr. Albert Pedro. - have requested last office note from Dr. Pedro's office; this is still in process. - signing off care for this patient Discussion w patient/family: The assessment and plan as outlined above was discussed with the patient and/or family members who expressed understanding and agreement. All questions were answered. Thank you for involving us in the care of your patient. Please call with any questions. Subjective Principal diagnosis: Atrial flutter Interval history: Patient reports she feels well, though she feels she is sleeping more than usual. She also feels like her "legs aren't hers." Otherwise, she denies further issues today. We are still waiting for last office note from [facility]. Objective Vital Signs, Last 4 Hours Temp Pulse Resp BP Pulse Ox 03/29/19 07:44 17 96 03/29/19 07:40 97.5 F L 90 17 121/51 98 03/29/19 04:32 97.6 F 93 16 112/62 95 Other: GENERAL: drowsy but wakes to voice, answers questions appropriately EYES: anicteric, clear sclerae, pupils equal and reactive to light ENT: moist mucosa NECK: normal carotid pulses, no carotid bruits heard CV: regular rate and rhythm with no murmurs RESPIRATORY: clear to auscultation bilaterally. No wheezes, rhonchi, or rales GI: soft, nontender, nondistended. Normal bowel sounds. EXTREMITIES: lower extremities show some dark coloration on ankles, nonpitting edema present bilaterally. Lower extremities continue to be very tender bilaterally. Peripheral pulses are 2+/4. Capillary refill <2 sec Results 03/29/19 04:59 03/29/19 04:59 Lab Results 03/28/19 03/29/19 03/29/19 12:05 04:59 04:59 WBC 6.5 Hgb 12.0 Hct 38.4 Plt Count 84 L INR 1.1 Sodium Potassium Chloride Carbon Dioxide BUN Creatinine Glucose Calcium Troponin I < 0.03 03/29/19 04:59 WBC Hgb Hct Plt Count INR Sodium 146 H Potassium 4.1 Chloride 111 H Carbon Dioxide 25 BUN 53 H Creatinine 1.55 H Glucose 141 H Calcium 8.8 Troponin I Consult Discharge Plan - Plan Referrals: Namrata Salazar CNP [Primary Care Provider] - <Marlys Levine - Last Filed: 03/29/19 12:30> Date of Encounter: 03/29/19 Assessment and Plan Discussion w patient/family: I examined this patient and my medical decision-making was reviewed with the Resident Physician. I agree with the documented findings, disposition and treatment plan as described. Ms. Hayes has no new cardiac symptoms to report today. Heart rates appear controlled on PO cardizem. Switched to long acting. Per Pharmacy, outpatient meds include rhythmol. Unfortunately this was not started at admission. The patient's care is outside [place] and she is a poor historian. At this time, since HRs are controlled and she reports being unable to be on full anticoagulation, it is reasonable to hold this and continue cardizem. Continue aspirin. She can follow up with her primary Agent Based Modeler at [facility], Dr. Mcdowell for further recommendations. Will sign off. Please call with questions. Results 03/29/19 04:59 03/29/19 04:59 Lab Results 03/28/19 03/29/19 03/29/19 12:05 04:59 04:59 WBC 6.5 Hgb 12.0 Hct 38.4 Plt Count 84 L INR 1.1 Sodium Potassium Chloride Carbon Dioxide BUN Creatinine Glucose Calcium Troponin I < 0.03 03/29/19 04:59 WBC Hgb Hct Plt Count INR Sodium 146 H Potassium 4.1 Chloride 111 H Carbon Dioxide 25 BUN 53 H Creatinine 1.55 H Glucose 141 H Calcium 8.8 Troponin I
[2019-03-29] MEDS: Insulin LISPRO 300 UNITS/3 ML VIAL SQ SCH ×3 (08:10→16:34)
[2019-03-29] MEDS: levETIRAcetam 250 MG TABLET PO SCH (08:17)
[2019-03-29] MEDS: Topiramate 100 MG TABLET PO SCH (08:17)
[2019-03-29] MEDS: rOPINIRole 1 MG TABLET PO SCH ×2 (08:17→15:12)
[2019-03-29] MEDS: dilTIAZem HCl 60 MG TABLET PO SCH (08:18)
[2019-03-29] MEDS: Furosemide 40 MG TABLET PO SCH ×2 (08:18→16:33)
[2019-03-29] MEDS: Aspirin 81 MG TAB.CHEW PO SCH (08:18)
[2019-03-29] MEDS ORDERED: Multivit/Ca/Min/Fe/FA 1 TAB TABLET PO SCH (09:00)
[2019-03-29] MEDS ORDERED: Diltiazem CD (24hr) 120 MG CAPSULE PO SCH (09:00)
--- NOTE | 2019-03-29 11:03 | Internal Med Progress Note ---
Hospitalist Progress Note - Encounter Date of Encounter: 03/29/19 - Exam Vitals: Temp Pulse Resp BP Pulse Ox 97.5 F L 90 17 121/51 96 03/29/19 07:40 03/29/19 07:40 03/29/19 07:44 03/29/19 07:40 03/29/19 07:44 - Assessment and Plan (1) Atrial flutter with rapid ventricular response Current Visit: Yes Status: Acute (2) Hypertension Current Visit: Yes Status: Acute (3) Diabetes Current Visit: Yes Status: Acute - Time Spent with Patient Total time spent is greater than 50% in coordination of care (as documented) at patient's floor/unit and/or counseling patient: Internal Medicine: Result - Labs CBC & Chem 7: 03/29/19 04:59 03/29/19 04:59 Labs: Short CBC 03/29/19 Range/Units 04:59 WBC 6.5 (4.3-11.1) K/mcL Hgb 12.0 (11.5-15.4) g/dL Hct 38.4 (35.3-44.9) % Plt Count 84 L (140-400) K/mcL Neutrophils # 4.2 (1.6-8.9) K/mcL BMP 03/29/19 04:59 Sodium 146 H Potassium 4.1 Chloride 111 H Carbon Dioxide 25 BUN 53 H Creatinine 1.55 H Glucose 141 H Calcium 8.8 Cardiac Enzymes 03/28/19 Range/Units 12:05 Troponin I < 0.03 (< 0.04) ng/mL - ABG Interpretation ABG results: PT/INR, D-dimer PT 12.6 Seconds (9.4-12.1) H 03/29/19 04:59 - Impressions Impressions Liver Ultrasound 03/28/19 11:00 IMPRESSION: Cholecystectomy. D/ / Lei Beltran MD / Lei Beltran MD Interpreting Provider: Lei Beltran MD Consult Discharge Plan - Plan Referrals: Namrata Salazar, [employer] OPERATOR [employer] [Primary Care Provider] -
[2019-03-29] MEDS ORDERED: Insulin DETEMIR 100 UNIT/ML X5UNITS SQ SCH (16:00)
[2019-03-29 16:09] VITALS: BP 114/57
[2019-03-29] MEDS ORDERED: traMADol 50 MG TABLET PO PRN (18:10)
--- NOTE | 2019-03-29 18:12 | Discharge Summary ---
<Layla Rodrigues I - Last Filed: 03/29/19 18:08> - NOTES TO OUTPATIENT PROVIDER Notes to Outpatient Provider: Patient has known history of A fib not on anticoagulation due to frequent falls . presented with Atrial flutter with RVR . rate controlled with Diltiazim . will be discharged home on 120 mg daily of diltiazem plus 81 mg of aspirin and followup with cardiology . Date of Encounter: 03/29/19 Time of Encounter: 08:30 - Discharge Diagnosis (1) Atrial flutter with rapid ventricular response Priority: Primary Status: Resolved (2) Hypertension Priority: Secondary Status: Acute Qualifiers: Qualified Code(s): I10 - Essential (primary) hypertension (3) Diabetes Priority: Secondary Status: Acute Qualifiers: Qualified Code(s): E11.9 - Type 2 diabetes mellitus without complications Hospital course: Ms. Hayes is a 63 year old female with PMH of atrial fibrillation, cirrhosis, CHF, COPD, coronary artery disease, CVA, diabetes, hyperlipidemia, hypertension, renal disease. presented with atrial flutter with RVR . patient was not on anticoagulation due to frequent falls,Patient states she was on both Eliquis and Xarelto in the past but taken off due to falls. She reports falling due to instability several times a month. she has implantable loop recorder has been in place for about 6 months now and she has not been followed by cardiology .rate was controlled with Cardizem drips then we switch her to oral cardizim ,she had echo and show EF of 60% intermediate diastolic dysfunction . moderate PH and RA dialtion , patient is stable now still in flutter she will be discharged home with home health referal .cardiology was consulted and they recommend to be discharged home on 120 mg daily of diltiazem plus 81 mg of aspirin and asked to followup with cardiology - Time Spent with Patient Total time spent providing and/or coordinating discharge services: - Discharge Medications Prescriptions: New Aspirin 81 mg PO DAILY 30 Days #30 tab.chew Diltiazem CD (24hr) [Cardizem CD] 120 mg PO DAILY 30 Days #30 cap.er.24h Continued Albuterol Sulfate [Proventil Inhaler] 2 puff IH QID PRN PRN Reason: Shortness Of Breath Fluticasone/Salmeterol [Advair Hfa 115-21 Mcg Inhaler] 2 puff IH Q12H Meclizine [Antivert] 12.5 mg PO TID Vit C/E/Zn/Coppr/Lutein/Zeaxan [Preservision Areds 2 Softgel] 1 cap PO BID Insulin Degludec [Tresiba Flextouch U-200] 80 unit SQ DAILY Topiramate [Topamax] 100 mg PO BID Linagliptin [Tradjenta] 5 mg PO DAILY Ropinirole HCl [Requip] 2 mg PO TID Montelukast [Singulair] 10 mg PO DAILY Melatonin/Pyridoxine HCl (B6) [Melatonin 3 mg Tablet] 1 each PO HS Insulin LISPRO [Humalog] 0 unit SQ TID Furosemide [Lasix] 40 mg PO BID Ferrous Sulfate [Iron] 325 mg PO DAILY Duloxetine HCl [Cymbalta] 60 mg PO BID LORazepam [Ativan] 0.5 mg PO HS Atorvastatin [Lipitor] 40 mg PO HS Solifenacin Succinate [Vesicare] 5 mg PO DAILY HYDROcodone/Acet 5/325 mg [[place]on 5-325 mg] 1 tab PO Q6H PRN PRN Reason: Pain Metoprolol Tartrate [Lopressor] 50 mg PO DAILY #0 LevETIRAcetam [Keppra] 500 mg PO BID Home Medications: Atorvastatin [Lipitor] 40 mg PO HS 01/29/19 [History] Duloxetine HCl [Cymbalta] 60 mg PO BID 01/29/19 [History] Ferrous Sulfate [Iron] 325 mg PO DAILY 01/29/19 [History] Furosemide [Lasix] 40 mg PO BID 01/29/19 [History] Insulin Degludec [Tresiba Flextouch U-200] 80 unit SQ DAILY 01/29/19 [History] Insulin LISPRO [Humalog] 0 unit SQ TID 01/29/19 [History] LORazepam [Ativan] 0.5 mg PO HS 01/29/19 [History] Linagliptin [Tradjenta] 5 mg PO DAILY 01/29/19 [History] Melatonin/Pyridoxine HCl (B6) [Melatonin 3 mg Tablet] 1 each PO HS 01/29/19 [History] Montelukast [Singulair] 10 mg PO DAILY 01/29/19 [History] Ropinirole HCl [Requip] 2 mg PO TID 01/29/19 [History] Solifenacin Succinate [Vesicare] 5 mg PO DAILY 01/29/19 [History] Topiramate [Topamax] 100 mg PO BID 01/29/19 [History] HYDROcodone/Acet 5/325 mg [[place]on 5-325 mg] 1 tab PO Q6H PRN 03/01/19 [History] LevETIRAcetam [Keppra] 500 mg PO BID 03/01/19 [History] Metoprolol Tartrate [Lopressor] 50 mg PO DAILY #0 03/01/19 [History] Albuterol Sulfate [Proventil Inhaler] 2 puff IH QID PRN 03/28/19 [History] Fluticasone/Salmeterol [Advair Hfa 115-21 Mcg Inhaler] 2 puff IH Q12H 03/28/19 [History] Meclizine [Antivert] 12.5 mg PO TID 03/28/19 [History] Vit C/E/Zn/Coppr/Lutein/Zeaxan [Preservision Areds 2 Softgel] 1 cap PO BID 03/28/19 [History] Aspirin 81 mg PO DAILY 30 Days #30 tab.chew 03/29/19 [Rx] Diltiazem CD (24hr) [Cardizem CD] 120 mg PO DAILY 30 Days #30 cap.er.24h 03/29/19 [Rx] Allergies/Adverse Reactions: Allergy/AdvReac Type Severity Reaction Status Date / Time divalproex sodium Allergy Rash Verified 03/27/19 16:42 [From Depakote] gabapentin [From Neurontin] Allergy Hallucinati Verified 03/27/19 16:42 ng Iodinated Contrast Media Allergy Hives Verified 03/27/19 16:42 [Iodinated Contrast- Oral and IV Dye] levofloxacin [From Levaquin] Allergy Hallucinati Verified 03/27/19 16:42 ng naproxen Allergy Itching Verified 03/27/19 16:42 Nefazodone [From Serzone] Allergy Hives Verified 03/27/19 16:42 Penicillins Allergy Hives Verified 03/27/19 16:42 pregabalin [From Lyrica] Allergy Fainting Verified 03/27/19 16:42 Tizanidine [From Zanaflex] Allergy Difficulty Verified 03/27/19 16:42 Swallowing ibuprofen AdvReac Gastrointestinal Verified 03/27/19 16:42 Upset Date of admission: 03/27/19 20:20 Primary care physician: Namrata Salazar CNP Consults: 03/27/19 23:21 Consult to Cardiology [CONS] Routine Comment: Consulting Provider: Cardiology Sheba Reason for Consult: atrial flutter/RVR Call Completed: No 03/29/19 14:12 Consult to Physical Therapy [CONS] Routine Comment: Evaluate, develop and implement POC Reason for Consult: frequent falls Does patient have active BEDREST order?: Yes Is patient medically & hemodynamically stable?: Yes OT [Consult to Occupational Therapy] [CONS] Routine Comment: Evaluate, develop and implement POC Reason for Consult: frequent falls Does patient have active BEDREST order?: Yes Is patient medically & hemodynamically stable?: Yes - Constitutional Vitals: Temp Pulse Resp BP Pulse Ox 97.6 F 61 17 114/57 96 03/29/19 16:08 03/29/19 16:08 03/29/19 16:08 03/29/19 16:08 03/29/19 16:08 General appearance: Present: cooperative, A&O X 3, pleasant, no acute distress, answers questions appropriately Exam: . - Head Head exam: Present: atraumatic, normal inspection - Eye Eye exam: Present: normal appearance, PERRL - Neck Neck exam general surgery: Present: full ROM, trachea midline - Respiratory Respiratory exam: Present: CTAB - Cardiovascular Cardiovascular exam: Present: irregular rhythm, +S1, +S2 - GI/Abdominal GI/Abdominal exam: Present: normal bowel sounds, soft - Neurological Exam Neurological exam: Present: alert, CN II-XII intact, no focal deficits - Psychiatric Psychiatric exam: Present: manic, normal affect, normal mood - Patient Status Disposition: Home Health Service Condition: Fair - Discharge Instructions Instructions: Metoprolol (By mouth), Aspirin (By mouth), Atrial Flutter (DC), Atrial Fibrillation (DC) Follow Up With: Namrata Salazar CNP [Primary Care Provider] - Jennie Rojas DO [Resident] - Marlys Levine DO [Partnered Physician] - - Diet and Activity Diet: diabetic diet <Ghanem,Jose Juan Rheem - Last Filed: 03/29/19 20:57> Date of Encounter: 03/29/19 - Discharge Diagnosis (1) DM type 2 (diabetes mellitus, type 2) Status: Chronic Qualifiers: Diabetes mellitus terminal worker insulin use: with jail use Diabetes mellitus complication detail: with chronic kidney disease Chronic kidney disease stage: stage 3 (moderate) Qualified Code(s): E11.22 - Type 2 diabetes mellitus with diabetic chronic kidney disease; N18.3 - Chronic kidney disease, stage 3 (moderate); Z79.4 - longterm (current) use of insulin (2) Atrial flutter with rapid ventricular response Status: Acute (3) Cirrhosis Status: Chronic Qualifiers: Hepatic cirrhosis type: unspecified hepatic cirrhosis Ascites presence: without ascites Qualified Code(s): K74.60 - Unspecified cirrhosis of liver (4) DVT prophylaxis Status: Acute Hospital course: Ms. Hayes is a 63 year old female - Time Spent with Patient Total time spent providing and/or coordinating discharge services: Date of admission: 03/27/19 20:20 Primary care physician: Namrata Salazar CNP Consults: 03/27/19 23:21 Consult to Cardiology [CONS] Routine Comment: Consulting Provider: Cardiology Sheba Reason for Consult: atrial flutter/RVR Call Completed: No 03/29/19 14:12 Consult to Physical Therapy [CONS] Routine Comment: Evaluate, develop and implement POC Reason for Consult: frequent falls Does patient have active BEDREST order?: Yes Is patient medically & hemodynamically stable?: Yes OT [Consult to Occupational Therapy] [CONS] Routine Comment: Evaluate, develop and implement POC Reason for Consult: frequent falls Does patient have active BEDREST order?: Yes Is patient medically & hemodynamically stable?: Yes - Constitutional Vitals: Temp Pulse Resp BP Pulse Ox 97.6 F 61 16 114/57 95 03/29/19 16:08 03/29/19 16:08 03/29/19 19:24 03/29/19 16:08 03/29/19 19:24 - Attending Attestation I saw evaluated and examined this patient and reviewed objective data including labs and my medical decision-making was reviewed with the Resident Physician. I agree with the documented findings, disposition and treatment plan as described except to any changes set forth below. We independently had [id number] contact with the patient.
--- NOTE | 2019-03-29 18:46 | Physician Discharge Referral ---
Home Health/Hosp Referral Info Transfer to: Home Health Provider in Charge Post Discharge: PCP - Diagnosis (1) Atrial flutter with rapid ventricular response Priority: Primary Status: Resolved (2) Hypertension Priority: Secondary Status: Acute (3) Diabetes Priority: Secondary Status: Acute - Respiratory Orders None Smoking Cessation: Smoking cessation has been advised. For more information, call the [place] Tobacco Quit Line at 2-874-BMGB-NOW. - Diet/Nutrition Diet/Nutrition Orders: Cardiac, No Concentrated Sweets - Activity Activity Orders: Up ad joselin - Services Needed Following services are medically necessary services: Nursing, Home Health Aide, Physical Therapy, Occupational Therapy - Transfer Medications Prescriptions: Aspirin 81 mg PO DAILY 30 Days #30 tab.chew Diltiazem CD (24hr) [Cardizem CD] 120 mg PO DAILY 30 Days #30 cap.er.24h Home Medications: Atorvastatin [Lipitor] 40 mg PO HS 01/29/19 [History] Duloxetine HCl [Cymbalta] 60 mg PO BID 01/29/19 [History] Ferrous Sulfate [Iron] 325 mg PO DAILY 01/29/19 [History] Furosemide [Lasix] 40 mg PO BID 01/29/19 [History] Insulin Degludec [Tresiba Flextouch U-200] 80 unit SQ DAILY 01/29/19 [History] Insulin LISPRO [Humalog] 0 unit SQ TID 01/29/19 [History] LORazepam [Ativan] 0.5 mg PO HS 01/29/19 [History] Linagliptin [Tradjenta] 5 mg PO DAILY 01/29/19 [History] Melatonin/Pyridoxine HCl (B6) [Melatonin 3 mg Tablet] 1 each PO HS 01/29/19 [History] Montelukast [Singulair] 10 mg PO DAILY 01/29/19 [History] Ropinirole HCl [Requip] 2 mg PO TID 01/29/19 [History] Solifenacin Succinate [Vesicare] 5 mg PO DAILY 01/29/19 [History] Topiramate [Topamax] 100 mg PO BID 01/29/19 [History] HYDROcodone/Acet 5/325 mg [[place]atherine 5-325 mg] 1 tab PO Q6H PRN 03/01/19 [History] LevETIRAcetam [Keppra] 500 mg PO BID 03/01/19 [History] Metoprolol Tartrate [Lopressor] 50 mg PO DAILY #0 03/01/19 [History] Albuterol Sulfate [Proventil Inhaler] 2 puff IH QID PRN 03/28/19 [History] Fluticasone/Salmeterol [Advair Hfa 115-21 Mcg Inhaler] 2 puff IH Q12H 03/28/19 [History] Meclizine [Antivert] 12.5 mg PO TID 03/28/19 [History] Vit C/E/Zn/Coppr/Lutein/Zeaxan [Preservision Areds 2 Softgel] 1 cap PO BID 03/28/19 [History] Aspirin 81 mg PO DAILY 30 Days #30 tab.chew 03/29/19 [Rx] Diltiazem CD (24hr) [Cardizem CD] 120 mg PO DAILY 30 Days #30 cap.er.24h 03/29/19 [Rx] Allergies/Adverse Reactions: Allergy/AdvReac Type Severity Reaction Status Date / Time divalproex sodium Allergy Rash Verified 03/27/19 16:42 [From Depakote] gabapentin [From Neurontin] Allergy Hallucinati Verified 03/27/19 16:42 ng Iodinated Contrast Media Allergy Hives Verified 03/27/19 16:42 [Iodinated Contrast- Oral and IV Dye] levofloxacin [From Levaquin] Allergy Hallucinati Verified 03/27/19 16:42 ng naproxen Allergy Itching Verified 03/27/19 16:42 Nefazodone [From Serzone] Allergy Hives Verified 03/27/19 16:42 Penicillins Allergy Hives Verified 03/27/19 16:42 pregabalin [From Lyrica] Allergy Fainting Verified 03/27/19 16:42 Tizanidine [From Zanaflex] Allergy Difficulty Verified 03/27/19 16:42 Swallowing ibuprofen AdvReac Gastrointestinal Verified 03/27/19 16:42 Upset Certification: Further, I certify that my clinical findings support that this patient is homebound (i.e. absences from home require considerable and taxing effort and are for medical reasons or christianity services or infrequently or short duration when for other reasons) because: Homebound Reason: Patient requires assistance of a person or device to safely leave home Attestation: My signature below is to certify that this patient is under my care and that I, or nurse practitioner, or a physician's curatorial assistant working with me, has a [id number] encounter with this patient.
== END 2019-03-29 21:45 | disposition home health service (06) ==
LOC: 2NENU → SUATTDRO 20:20
PROVIDERS: ADMIT Internal Medicine Nephrology; ATTEND Student in an Organized Health Care Education/Training Program

== ENCOUNTER 2020-07-14 01:37 | Inpatient (IN) ==
[2020-07-14] MEDS ORDERED: Ondansetron ODT 4 MG TAB.RAPDIS SL PRN (01:49)
[2020-07-14] MEDS ORDERED: Perflutren Lipid Microsphere 1.3 ML in 0.9 % Sodium Chloride 8.7 ML IVP PRN (01:54)
[2020-07-14] MEDS ORDERED: *HR* Dextrose 50 % in Water (Vial) 50 ML VIAL IVP PRN (01:55)
[2020-07-14] MEDS ORDERED: D5% in Water 1,000 ML IVC PRN (01:55)
[2020-07-14] MEDS ORDERED: Dextrose Gel 15 GM/37.5 ML TUBE PO PRN ×2 (01:55)
[2020-07-14] MEDS ORDERED: Aspirin 325 MG TABLET PO ONE (02:43)
[2020-07-14] MEDS ORDERED: Furosemide 80 MG in 0.9 % Sodium Chloride 50 ML IV SCH (02:45)
[2020-07-14 03:04] LABS: VBG HCO3 16 mEq/L (21-27); VBG PCO2 46 mmHg (41-51); VBG PH 7.14 pH Units (7.32-7.42); VBG PO2 108 mmHg (25-50)
[2020-07-14 03:10] LABS: Hematocrit 27.9 % (35.3-44.9); Hemoglobin 8.5 g/dL (11.5-15.4); Immature Platelets 2.4 % (1.1-6.1); Mean Corpuscular HGB Conc 30.5 g/dL (31.6-35.5); Mean Corpuscular Hemoglobin 33.5 pg (28.0-33.3); Mean Corpuscular Volume 109.8 fL (83.0-100.0); Mean Platelet Volume 12.3 fL (9.4-12.4); Red Blood Count 2.54 M/mcL (3.82-4.97); Red Cell Distribution Width 15.5 % (11.5-14.5); White Blood Count 4.1 K/mcL (4.3-11.1)
[2020-07-14 03:24] LABS: Troponin I < 0.03 ng/mL (< 0.04)
[2020-07-14 03:26] LABS: BUN/Creatinine Ratio 15 (6-26); Blood Urea Nitrogen 62 mg/dL (8-23); Calcium 7.6 mg/dL (8.6-10.3); Carbon Dioxide 15 mEq/L (23-29); Chloride 119 mEq/L (98-107); Glucose 173 mg/dL (70-105); Osmolality,Calculated 314 (280-300); Potassium 5.1 mEq/L (3.5-5.1); Sodium 141 mEq/L (136-145); eGFR For African Americans 13 (> 60); eGFR For Non-African Americans 11 (> 60)
[2020-07-14] MEDS ORDERED: Sodium Bicarbonate 150 MEQ in D5% in Water 500 ML IVC SCH (03:30)
[2020-07-14] MEDS: *HR* Heparin 5,000 UNIT/ML VIAL SQ SCH ×2 (05:19→17:16)
[2020-07-14] MEDS: Calcium Gluconate 1gm/50mL 1 GM/50 ML BAG IVPB SCH ×2 (09:15→11:05)
[2020-07-14] MEDS: Insulin LISPRO 300 UNITS/3 ML VIAL SQ SCH ×4 (09:15→19:46)
[2020-07-14 09:50] LABS: VBG HCO3 17 mEq/L (21-27); VBG PCO2 40 mmHg (41-51); VBG PH 7.23 pH Units (7.32-7.42); VBG PO2 145 mmHg (25-50)
[2020-07-14 10:03] LABS: % Iron Saturation 33 % (15-50); BUN/Creatinine Ratio 16 (6-26); Blood Urea Nitrogen 63 mg/dL (8-23); Calcium 7.7 mg/dL (8.6-10.3); Carbon Dioxide 15 mEq/L (23-29); Chloride 120 mEq/L (98-107); Glucose 165 mg/dL (70-105); Iron 72 mcg/dL (50-170); Magnesium 2.1 mg/dL (1.6-2.6); Osmolality,Calculated 316 (280-300); Phosphorous 6.3 mg/dL (2.7-4.5); Sodium 142 mEq/L (136-145); Transferrin 156 mg/dL (203-362); eGFR For African Americans 13 (> 60); eGFR For Non-African Americans 11 (> 60)
[2020-07-14 10:06] LABS: Troponin I < 0.03 ng/mL (< 0.04)
[2020-07-14 10:21] LABS: Ferritin 46 ng/mL (10-120)
[2020-07-14 10:30] LABS: Folate 6.8 ng/mL (3.0-16.0)
[2020-07-14] MEDS: Ipratropium/Albuterol Neb 3 ML IH SCH ×3 (11:24→22:30)
[2020-07-14] MEDS: predniSONE 20 MG TABLET PO SCH (11:55)
[2020-07-14 13:15] LABS: VBG HCO3 17 mEq/L (21-27); VBG PCO2 42 mmHg (41-51); VBG PH 7.22 pH Units (7.32-7.42); VBG PO2 158 mmHg (25-50)
[2020-07-14 13:28] LABS: BUN/Creatinine Ratio 16 (6-26); Blood Urea Nitrogen 63 mg/dL (8-23); Calcium 8.3 mg/dL (8.6-10.3); Carbon Dioxide 16 mEq/L (23-29); Chloride 118 mEq/L (98-107); Glucose 171 mg/dL (70-105); Osmolality,Calculated 316 (280-300); Potassium 5.1 mEq/L (3.5-5.1); Sodium 142 mEq/L (136-145); Troponin I < 0.03 ng/mL (< 0.04); eGFR For African Americans 14 (> 60); eGFR For Non-African Americans 11 (> 60)
[2020-07-14 16:00] LABS: Bilirubin,Urine Negative (Negative); Blood,Urine Trace (Negative); Clarity,Urine Clear (Clear); Color,Urine Colorless (Yellow); Glucose,Urine (UA) 150 mg/dL (Normal); Ketones,Urine Negative (Negative); Leukocyte Esterase,Urine Negative (Negative); Mucus,Urine Few per lpf (None-Few); Nitrite,Urine Negative (Negative); PH,Urine 6.5 pH Units (5.0-8.0); Protein,Urine >=300 mg/dL (Neg-Trace); RBC,Urine 0-3 per hpf (0-3); Specific Gravity,Urine 1.008 (1.010-1.025); Squamous Epithelial Cell,Urine Few per hpf (None-Few); Urobilinogen,Urine Normal (Normal)
[2020-07-14] MEDS: Albumin 25% 25gram/100mL 25 GM/100 ML IV.SOLN IVPB SCH (17:17)
[2020-07-14] MEDS: Furosemide 40 MG/4 ML VIAL IVP SCH ×2 (17:17→19:53)
[2020-07-14 19:04] LABS: VBG HCO3 16 mEq/L (21-27); VBG PCO2 37 mmHg (41-51); VBG PH 7.24 pH Units (7.32-7.42); VBG PO2 202 mmHg (25-50)
[2020-07-14 20:07] LABS: Potassium 5.5 mEq/L (3.5-5.1)
[2020-07-15] MEDS: *HR* Heparin 5,000 UNIT/ML VIAL SQ SCH ×3 (00:33→22:19)
[2020-07-15] MEDS: Albumin 25% 25gram/100mL 25 GM/100 ML IV.SOLN IVPB SCH ×3 (00:34→16:40)
[2020-07-15] MEDS: Ipratropium/Albuterol Neb 3 ML IH SCH ×4 (03:23→22:05)
[2020-07-15 07:45] LABS: Eosinophils % 0.3 %; Red Cell Distribution Width 15.3 % (11.5-14.5)
[2020-07-15 07:47] LABS: Immature Granulocytes % 0.5 % (0-4); Immature Platelets 2.6 % (1.1-6.1); Lymphocytes # 0.8 K/mcL (0.6-4.6); Lymphocytes % 21.5 %; Mean Corpuscular HGB Conc 30.8 g/dL (31.6-35.5); Mean Corpuscular Hemoglobin 32.5 pg (28.0-33.3); Mean Corpuscular Volume 105.7 fL (83.0-100.0); Mean Platelet Volume 12.5 fL (9.4-12.4); Monocytes # 0.3 K/mcL (0.0-1.3); Monocytes % 8.5 %; Neutrophils # 2.6 K/mcL (1.6-8.9); Red Blood Count 2.46 M/mcL (3.82-4.97); Segmented Neutrophils % 69.2 %; White Blood Count 3.8 K/mcL (4.3-11.1)
[2020-07-15 07:54] LABS: Platelet Count 67 K/mcL (140-400)
[2020-07-15 07:57] LABS: Calcium 8.2 mg/dL (8.6-10.3); Magnesium 2.1 mg/dL (1.6-2.6)
[2020-07-15] MEDS: predniSONE 20 MG TABLET PO SCH (09:01)
[2020-07-15] MEDS: Insulin LISPRO 300 UNITS/3 ML VIAL SQ SCH ×4 (09:01→22:59)
[2020-07-15] MEDS: Furosemide 40 MG/4 ML VIAL IVP SCH ×3 (09:01→22:20)
[2020-07-15 09:18] LABS: Estimated Average Glucose 192 mg/dl; Hemoglobin A1C 8.3 %
[2020-07-15] MEDS: DilTIAZem CD (24hr) 120 MG CAP.ER.24H PO SCH (09:59)
[2020-07-15] MEDS: Metoprolol XL (24 HR) Succ 50 MG TAB.ER.24H PO SCH (12:56)
[2020-07-15] MEDS: Topiramate 100 MG TABLET PO SCH ×2 (12:56→22:20)
[2020-07-15] MEDS: OLANZapine 5 MG TAB.RAPDIS PO SCH (12:56)
[2020-07-15] MEDS: Budesonide/Formoterol 80/4.5 1 PUFF INH IH SCH ×2 (15:01→22:11)
[2020-07-15] MEDS: rOPINIRole 1 MG TABLET PO SCH ×2 (15:29→22:20)
[2020-07-15] MEDS: PROPAFENONE HCL 225 MG PO SCH ×2 (16:27→22:17)
[2020-07-15] MEDS: Insulin DETEMIR 100 UNIT/ML X5UNITS SQ SCH (22:18)
[2020-07-15] MEDS: OLANZapine 10 MG TAB.RAPDIS PO SCH (22:20)
[2020-07-15] MEDS: traZODone 50 MG TABLET PO SCH (22:20)
[2020-07-16] MEDS: Albumin 25% 25gram/100mL 25 GM/100 ML IV.SOLN IVPB SCH ×3 (00:22→17:46)
[2020-07-16] MEDS: Ipratropium/Albuterol Neb 3 ML IH SCH ×6 (03:59→23:33)
[2020-07-16 05:16] LABS: Eosinophils % 0.2 %; Hemoglobin 7.2 g/dL (11.5-15.4); Mean Corpuscular HGB Conc 31.3 g/dL (31.6-35.5); Mean Platelet Volume 12.3 fL (9.4-12.4); Red Cell Distribution Width 15.7 % (11.5-14.5); White Blood Count 4.3 K/mcL (4.3-11.1)
[2020-07-16 05:18] LABS: Basophils % 0.2 %; Immature Granulocytes % 0.2 % (0-4); Immature Platelets 2.6 % (1.1-6.1); Lymphocytes # 0.8 K/mcL (0.6-4.6); Lymphocytes % 18.8 %; Mean Corpuscular Hemoglobin 32.7 pg (28.0-33.3); Mean Corpuscular Volume 104.5 fL (83.0-100.0); Monocytes # 0.4 K/mcL (0.0-1.3); Monocytes % 9.1 %; Neutrophils # 3.1 K/mcL (1.6-8.9); Nucleated Red Blood Cells 0.5 /100 WBC (0); Segmented Neutrophils % 71.5 %
[2020-07-16 05:24] LABS: Platelet Count 56 K/mcL (140-400)
[2020-07-16 05:39] LABS: Phosphorous 5.2 mg/dL (2.7-4.5)
[2020-07-16] MEDS: rOPINIRole 1 MG TABLET PO SCH ×3 (07:59→21:00)
[2020-07-16] MEDS: Metoprolol XL (24 HR) Succ 50 MG TAB.ER.24H PO SCH (07:59)
[2020-07-16] MEDS: predniSONE 20 MG TABLET PO SCH (08:00)
[2020-07-16] MEDS: OLANZapine 5 MG TAB.RAPDIS PO SCH (08:00)
[2020-07-16] MEDS: DilTIAZem CD (24hr) 120 MG CAP.ER.24H PO SCH (08:00)
[2020-07-16] MEDS: Topiramate 100 MG TABLET PO SCH ×2 (08:00→20:53)
[2020-07-16] MEDS: Furosemide 40 MG/4 ML VIAL IVP SCH ×3 (08:01→20:50)
[2020-07-16] MEDS: Insulin DETEMIR 100 UNIT/ML X5UNITS SQ SCH ×2 (08:06→20:51)
[2020-07-16] MEDS: *HR* Heparin 5,000 UNIT/ML VIAL SQ SCH (08:06)
[2020-07-16] MEDS: Insulin LISPRO 300 UNITS/3 ML VIAL SQ SCH ×4 (08:07→20:51)
[2020-07-16] MEDS: PROPAFENONE HCL 225 MG PO SCH (08:18)
[2020-07-16] MEDS: Budesonide/Formoterol 80/4.5 1 PUFF INH IH SCH ×2 (10:11→20:39)
[2020-07-16] MEDS: MethylPREDNISolone 40 MG/ML VIAL IVP SCH (11:04)
[2020-07-16] MEDS ORDERED: *HR* Heparin 10,000 UNIT/10 ML VIAL IV PRN (11:08)
[2020-07-16] MEDS ORDERED: 0.9 % Sodium Chloride 250 ML IVC PRN (11:08)
[2020-07-16] MEDS ORDERED: 0.9 % Sodium Chloride 1,000 ML PRIME SCH (11:15)
[2020-07-16 11:40] LABS: ABG PCO2 44 mmHg (35-45); ABG PH 7.26 pH Units (7.32-7.45)
[2020-07-16 11:41] LABS: ABG Base Excess -7 mEq/L (-2 to 3); ABG HCO3 20 mEq/L (21-27); ABG Oxygen Saturation 91 % (95-98); ABG PO2 71 mmHg (85-104); ABG TCO2 21 mEq/L (20-26)
[2020-07-16] MEDS ORDERED: *HR* Heparin 5,000 UNIT/ML VIAL ONE (12:42)
[2020-07-16 13:13] LABS: Hepatitis B Surface Antibody < 3.10 mIU/mL
[2020-07-16 13:24] LABS: Hepatitis B Surface Antigen Nonreactive (Nonreactive)
[2020-07-16] MEDS ORDERED: Iron Sucrose Complex 400 MG in 0.9 % Sodium Chloride 250 ML IVPB ONE (18:10)
[2020-07-16] MEDS: traZODone 50 MG TABLET PO SCH (20:49)
[2020-07-16] MEDS: OLANZapine 10 MG TAB.RAPDIS PO SCH (20:50)
[2020-07-16] MEDS: Acetaminophen 325 MG TABLET PO PRN (21:21)
[2020-07-17] MEDS: Ipratropium/Albuterol Neb 3 ML IH SCH ×6 (04:15→23:09)
[2020-07-17] MEDS ORDERED: 0.9 % Sodium Chloride 250 ML IVC PRN (07:30)
[2020-07-17 08:06] LABS: INR 1.1; Prothrombin Time 13.1 Seconds (9.4-12.1)
[2020-07-17 08:47] LABS: Calcium 7.8 mg/dL (8.6-10.3); Magnesium 1.9 mg/dL (1.6-2.6); Potassium 4.9 mEq/L (3.5-5.1)
[2020-07-17] MEDS: Insulin LISPRO 300 UNITS/3 ML VIAL SQ SCH ×4 (10:35→21:58)
[2020-07-17] MEDS: Budesonide/Formoterol 80/4.5 1 PUFF INH IH SCH ×2 (11:17→19:43)
[2020-07-17] MEDS ORDERED: 0.9 % Sodium Chloride 500 ML ONE (11:54)
[2020-07-17] MEDS ORDERED: *HR* FentaNYL (PF) 100 MCG/2 ML VIAL IVP ONE (12:29)
[2020-07-17] MEDS: OLANZapine 5 MG TAB.RAPDIS PO SCH (14:28)
[2020-07-17] MEDS: rOPINIRole 1 MG TABLET PO SCH ×3 (14:28→21:59)
[2020-07-17] MEDS: DilTIAZem CD (24hr) 180 MG CAP.ER.24H PO SCH (14:29)
[2020-07-17] MEDS: MethylPREDNISolone 40 MG/ML VIAL IVP SCH (14:30)
[2020-07-17] MEDS: Furosemide 40 MG/4 ML VIAL IVP SCH ×3 (14:30→21:58)
[2020-07-17] MEDS: Metoprolol XL (24 HR) Succ 50 MG TAB.ER.24H PO SCH (14:30)
[2020-07-17] MEDS: Insulin DETEMIR 100 UNIT/ML X5UNITS SQ SCH ×2 (14:31→21:59)
[2020-07-17 14:32] LABS: Lymphocytes % 13.6 %; Mean Corpuscular HGB Conc 31.4 g/dL (31.6-35.5); Monocytes % 9.5 %
[2020-07-17 14:34] LABS: Basophils % 0.1 %; Eosinophils % 0.6 %; Hematocrit 31.5 % (35.3-44.9); Hemoglobin 9.9 g/dL (11.5-15.4); Immature Granulocytes % 0.7 % (0-4); Immature Platelets 5.2 % (1.1-6.1); Mean Corpuscular Hemoglobin 32.7 pg (28.0-33.3); Mean Platelet Volume 12.3 fL (9.4-12.4); Monocytes # 0.7 K/mcL (0.0-1.3); Neutrophils # 5.3 K/mcL (1.6-8.9); Red Blood Count 3.03 M/mcL (3.82-4.97); Red Cell Distribution Width 15.8 % (11.5-14.5); Segmented Neutrophils % 75.5 %
[2020-07-17 14:38] LABS: Platelet Count 70 K/mcL (140-400)
[2020-07-17] MEDS: Topiramate 100 MG TABLET PO SCH ×2 (14:46→22:00)
[2020-07-17] MEDS: OLANZapine 10 MG TAB.RAPDIS PO SCH (22:00)
[2020-07-17] MEDS: traZODone 50 MG TABLET PO SCH (22:00)
[2020-07-17] MEDS: Acetaminophen 325 MG TABLET PO PRN (22:01)
[2020-07-18 00:22] LABS: Adenovirus Not Detected (Not Detect); Bordetella Pertussis Not Detected (Not Detect); Chlamydophila pneumoniae Not Detected (Not Detect); Coronavirus 229E Not Detected (Not Detect); Coronavirus HKU1 Not Detected (Not Detect); Coronavirus NL63 Not Detected (Not Detect); Coronavirus OC43 Not Detected (Not Detect); Human Metapneumovirus Not Detected (Not Detect); Human Rhinovirus/Enterovirus Not Detected (Not Detect); Influenza A Subtype 2009 H1 Not Detected (Not Detect); Influenza B Not Detected (Not Detect); Mycoplasma pneumoniae Not Detected (Not Detect); Parainfluenza Virus 1 Not Detected (Not Detect); Parainfluenza Virus 2 Not Detected (Not Detect); Parainfluenza Virus 3 Not Detected (Not Detect); Parainfluenza Virus 4 Not Detected (Not Detect); Respiratory Syncytial Virus Not Detected (Not Detect); SARS-CoV-2 Not Detected (Not Detect)
[2020-07-18] MEDS ORDERED: Nitroglycerin 0.4 MG TAB.SUBL SL PRN (00:51)
[2020-07-18 01:01] LABS: ABG Base Excess 1 mEq/L (-2 to 3); ABG HCO3 27 mEq/L (21-27); ABG Oxygen Saturation 95 % (95-98); ABG PCO2 50 mmHg (35-45); ABG PH 7.34 pH Units (7.32-7.45); ABG PO2 80 mmHg (85-104); ABG TCO2 29 mEq/L (20-26)
[2020-07-18] MEDS ORDERED: Albumin 25% 25gram/100mL 25 GM/100 ML IV.SOLN IVPB ONE (01:10)
[2020-07-18] MEDS ORDERED: 0.9 % Sodium Chloride 250 ML IVC ONE (01:10)
[2020-07-18 01:25] LABS: Hematocrit 28.6 % (35.3-44.9); Immature Granulocytes % 0.6 % (0-4); Lymphocytes # 0.4 K/mcL (0.6-4.6); Lymphocytes % 7.5 %; Mean Corpuscular HGB Conc 31.5 g/dL (31.6-35.5); Mean Corpuscular Hemoglobin 32.5 pg (28.0-33.3); Mean Corpuscular Volume 103.2 fL (83.0-100.0); Mean Platelet Volume 12.4 fL (9.4-12.4); Monocytes # 0.2 K/mcL (0.0-1.3); Monocytes % 3.2 %; Neutrophils # 4.7 K/mcL (1.6-8.9); Platelet Count 71 K/mcL (140-400); Red Blood Count 2.77 M/mcL (3.82-4.97); Red Cell Distribution Width 15.5 % (11.5-14.5); Segmented Neutrophils % 88.7 %; White Blood Count 5.3 K/mcL (4.3-11.1)
[2020-07-18 01:27] LABS: VBG Ionized Calcium 1.02 mmol/L (1.15-1.35)
[2020-07-18 01:46] LABS: BUN/Creatinine Ratio 21 (6-26); Blood Urea Nitrogen 47 mg/dL (8-23); Calcium 7.8 mg/dL (8.6-10.3); Carbon Dioxide 26 mEq/L (23-29); Chloride 105 mEq/L (98-107); Glucose 331 mg/dL (70-105); Magnesium 1.6 mg/dL (1.6-2.6); Osmolality,Calculated 315 (280-300); Phosphorous 4.3 mg/dL (2.7-4.5); Potassium 4.2 mEq/L (3.5-5.1); Sodium 140 mEq/L (136-145); eGFR For African Americans 27 (> 60); eGFR For Non-African Americans 22 (> 60)
[2020-07-18 01:48] LABS: Troponin I < 0.03 ng/mL (< 0.04)
[2020-07-18] MEDS: Ipratropium/Albuterol Neb 3 ML IH SCH ×6 (04:06→23:57)
[2020-07-18] MEDS: Doxycycline 100 MG in 0.9 % Sodium Chloride Mini Bag 100 ML IVPB SCH ×2 (06:14→17:04)
[2020-07-18] MEDS ORDERED: 0.9 % Sodium Chloride 250 ML IVC PRN (07:28)
[2020-07-18] MEDS: Budesonide/Formoterol 80/4.5 1 PUFF INH IH SCH ×2 (10:49→20:04)
[2020-07-18] MEDS: Insulin LISPRO 300 UNITS/3 ML VIAL SQ SCH ×4 (12:56→20:21)
[2020-07-18] MEDS: MethylPREDNISolone 40 MG/ML VIAL IVP SCH (13:02)
[2020-07-18] MEDS: Metoprolol XL (24 HR) Succ 50 MG TAB.ER.24H PO SCH (13:02)
[2020-07-18] MEDS: rOPINIRole 1 MG TABLET PO SCH ×3 (13:02→20:20)
[2020-07-18] MEDS: DilTIAZem CD (24hr) 180 MG CAP.ER.24H PO SCH (13:02)
[2020-07-18] MEDS: Topiramate 100 MG TABLET PO SCH ×2 (13:02→20:20)
[2020-07-18] MEDS: OLANZapine 5 MG TAB.RAPDIS PO SCH (13:03)
[2020-07-18] MEDS: Furosemide 40 MG/4 ML VIAL IVP SCH ×3 (13:03→20:19)
[2020-07-18] MEDS: Insulin DETEMIR 100 UNIT/ML X5UNITS SQ SCH ×2 (13:03→20:20)
[2020-07-18] MEDS: traZODone 50 MG TABLET PO SCH (20:20)
[2020-07-18] MEDS: OLANZapine 10 MG TAB.RAPDIS PO SCH (20:20)
[2020-07-19] MEDS: Ipratropium/Albuterol Neb 3 ML IH SCH ×6 (03:18→23:39)
[2020-07-19 03:36] LABS: Hematocrit 27.8 % (35.3-44.9); Hemoglobin 8.8 g/dL (11.5-15.4); Immature Granulocytes % 0.4 % (0-4); Lymphocytes # 0.5 K/mcL (0.6-4.6); Lymphocytes % 10.5 %; Mean Corpuscular HGB Conc 31.7 g/dL (31.6-35.5); Mean Corpuscular Hemoglobin 32.8 pg (28.0-33.3); Mean Corpuscular Volume 103.7 fL (83.0-100.0); Mean Platelet Volume 12.3 fL (9.4-12.4); Monocytes # 0.3 K/mcL (0.0-1.3); Monocytes % 5.5 %; Red Blood Count 2.68 M/mcL (3.82-4.97); Red Cell Distribution Width 14.7 % (11.5-14.5); Segmented Neutrophils % 83.6 %; White Blood Count 4.6 K/mcL (4.3-11.1)
[2020-07-19 03:38] LABS: Neutrophils # 3.9 K/mcL (1.6-8.9); Platelet Count 75 K/mcL (140-400)
[2020-07-19 03:54] LABS: Calcium 7.9 mg/dL (8.6-10.3); Magnesium 1.8 mg/dL (1.6-2.6); Potassium 4.4 mEq/L (3.5-5.1)
[2020-07-19] MEDS: Doxycycline 100 MG in 0.9 % Sodium Chloride Mini Bag 100 ML IVPB SCH ×2 (05:29→17:19)
[2020-07-19] MEDS: Budesonide/Formoterol 80/4.5 1 PUFF INH IH SCH ×2 (07:27→19:52)
[2020-07-19] MEDS ORDERED: Lidocaine -MPF 2% 2 ML VIAL ONE (08:19)
[2020-07-19] MEDS ORDERED: *HR* Metoprolol 5 MG/5 ML VIAL IVP ONE (09:01)
[2020-07-19] MEDS: MethylPREDNISolone 40 MG/ML VIAL IVP SCH (10:33)
[2020-07-19] MEDS: Furosemide 40 MG/4 ML VIAL IVP SCH ×3 (10:34→23:09)
[2020-07-19] MEDS: Insulin LISPRO 300 UNITS/3 ML VIAL SQ SCH (10:34)
[2020-07-19] MEDS: Insulin DETEMIR 100 UNIT/ML X5UNITS SQ SCH ×2 (10:35→23:08)
[2020-07-19] MEDS: Metoprolol XL (24 HR) Succ 50 MG TAB.ER.24H PO SCH (10:35)
[2020-07-19] MEDS: OLANZapine 5 MG TAB.RAPDIS PO SCH (10:36)
[2020-07-19] MEDS: rOPINIRole 1 MG TABLET PO SCH ×3 (10:36→22:57)
[2020-07-19] MEDS: Topiramate 100 MG TABLET PO SCH ×2 (10:36→22:58)
[2020-07-19] MEDS: DilTIAZem CD (24hr) 180 MG CAP.ER.24H PO SCH (10:36)
[2020-07-19] MEDS: Insulin LISPRO 300 UNITS/3 ML VIAL SUBQ SCH ×3 (12:59→23:09)
[2020-07-19] MEDS: Acetaminophen 325 MG TABLET PO PRN (17:22)
[2020-07-19] MEDS: traZODone 50 MG TABLET PO SCH (22:56)
[2020-07-19] MEDS: OLANZapine 10 MG TAB.RAPDIS PO SCH (22:58)
[2020-07-20 00:13] LABS: VBG Ionized Calcium 1.11 mmol/L (1.15-1.35)
[2020-07-20] MEDS: Ipratropium/Albuterol Neb 3 ML IH SCH ×6 (03:45→23:54)
[2020-07-20] MEDS: Budesonide/Formoterol 80/4.5 1 PUFF INH IH SCH ×2 (07:29→20:09)
[2020-07-20] MEDS: Doxycycline 100 MG in 0.9 % Sodium Chloride Mini Bag 100 ML IVPB SCH ×2 (07:32→16:41)
[2020-07-20 07:50] LABS: Hemoglobin 9.1 g/dL (11.5-15.4)
[2020-07-20] MEDS: Metoprolol XL (24 HR) Succ 50 MG TAB.ER.24H PO SCH (07:50)
[2020-07-20 07:51] LABS: Hematocrit 29.7 % (35.3-44.9); Immature Platelets 5.8 % (1.1-6.1); Mean Corpuscular HGB Conc 30.6 g/dL (31.6-35.5); Mean Corpuscular Hemoglobin 32.5 pg (28.0-33.3); Mean Corpuscular Volume 106.1 fL (83.0-100.0); Mean Platelet Volume 12.7 fL (9.4-12.4); Red Blood Count 2.8 M/mcL (3.82-4.97); Red Cell Distribution Width 14.6 % (11.5-14.5); White Blood Count 5.7 K/mcL (4.3-11.1)
[2020-07-20] MEDS: Topiramate 100 MG TABLET PO SCH ×2 (07:51→21:03)
[2020-07-20] MEDS: Furosemide 40 MG/4 ML VIAL IVP SCH ×3 (07:51→20:59)
[2020-07-20] MEDS: MethylPREDNISolone 40 MG/ML VIAL IVP SCH (07:51)
[2020-07-20] MEDS: rOPINIRole 1 MG TABLET PO SCH ×3 (07:51→21:01)
[2020-07-20] MEDS: OLANZapine 5 MG TAB.RAPDIS PO SCH (07:51)
[2020-07-20] MEDS: DilTIAZem CD (24hr) 180 MG CAP.ER.24H PO SCH (07:51)
[2020-07-20] MEDS: Insulin LISPRO 300 UNITS/3 ML VIAL SUBQ SCH ×5 (07:52→21:19)
[2020-07-20] MEDS: Insulin DETEMIR 100 UNIT/ML X5UNITS SQ SCH (08:01)
[2020-07-20 08:10] LABS: Calcium 7.8 mg/dL (8.6-10.3); Magnesium 1.8 mg/dL (1.6-2.6); Potassium 4.5 mEq/L (3.5-5.1)
[2020-07-20] MEDS ORDERED: 0.9 % Sodium Chloride 250 ML IVC PRN (08:46)
[2020-07-20] MEDS ORDERED: *HR* Heparin 10,000 UNIT/10 ML VIAL IV PRN (08:46)
[2020-07-20] MEDS: Insulin DETEMIR 100 UNIT/ML X5UNITS SUBQ SCH (21:01)
[2020-07-20] MEDS: traZODone 50 MG TABLET PO SCH (21:01)
[2020-07-20] MEDS: OLANZapine 10 MG TAB.RAPDIS PO SCH (21:02)
[2020-07-21 03:18] LABS: Basophils % 0.1 %; Hemoglobin 9.1 g/dL (11.5-15.4); Immature Granulocytes % 0.9 % (0-4); Red Cell Distribution Width 14.8 % (11.5-14.5)
[2020-07-21 03:20] LABS: Eosinophils % 0.1 %; Hematocrit 29.4 % (35.3-44.9); Immature Platelets 5.8 % (1.1-6.1); Lymphocytes % 14.5 %; Mean Corpuscular Hemoglobin 32.4 pg (28.0-33.3); Mean Corpuscular Volume 104.6 fL (83.0-100.0); Mean Platelet Volume 12.9 fL (9.4-12.4); Monocytes # 0.7 K/mcL (0.0-1.3); Monocytes % 9.8 %; Neutrophils # 5.2 K/mcL (1.6-8.9); Red Blood Count 2.81 M/mcL (3.82-4.97); Segmented Neutrophils % 74.6 %
[2020-07-21 03:23] LABS: Platelet Count 73 K/mcL (140-400)
[2020-07-21 03:38] LABS: Calcium 7.6 mg/dL (8.6-10.3); Potassium 4.2 mEq/L (3.5-5.1)
[2020-07-21] MEDS: Ipratropium/Albuterol Neb 3 ML IH SCH ×6 (03:48→23:21)
[2020-07-21] MEDS: Doxycycline 100 MG in 0.9 % Sodium Chloride Mini Bag 100 ML IVPB SCH ×2 (05:54→16:56)
[2020-07-21] MEDS: Insulin LISPRO 300 UNITS/3 ML VIAL SUBQ SCH ×4 (07:19→21:31)
[2020-07-21] MEDS: Topiramate 100 MG TABLET PO SCH ×2 (07:40→21:26)
[2020-07-21] MEDS: Furosemide 40 MG/4 ML VIAL IVP SCH ×3 (07:40→21:26)
[2020-07-21] MEDS: rOPINIRole 1 MG TABLET PO SCH ×3 (07:41→21:30)
[2020-07-21] MEDS: DilTIAZem CD (24hr) 180 MG CAP.ER.24H PO SCH (07:41)
[2020-07-21] MEDS: OLANZapine 5 MG TAB.RAPDIS PO SCH (07:41)
[2020-07-21] MEDS: Metoprolol XL (24 HR) Succ 50 MG TAB.ER.24H PO SCH (07:41)
[2020-07-21] MEDS: predniSONE 20 MG TABLET PO SCH (07:41)
[2020-07-21] MEDS: Budesonide/Formoterol 80/4.5 1 PUFF INH IH SCH ×2 (07:45→23:21)
[2020-07-21] MEDS: Insulin DETEMIR 100 UNIT/ML X5UNITS SUBQ SCH ×2 (07:48→21:27)
[2020-07-21] MEDS: traZODone 50 MG TABLET PO SCH (21:26)
[2020-07-21] MEDS: OLANZapine 10 MG TAB.RAPDIS PO SCH (21:26)
[2020-07-21] MEDS: Acetaminophen 325 MG TABLET PO PRN (23:10)
[2020-07-22] MEDS: Ipratropium/Albuterol Neb 3 ML IH SCH ×6 (03:43→23:39)
[2020-07-22 04:31] LABS: Eosinophils % 0.3 %; Hemoglobin 8.8 g/dL (11.5-15.4)
[2020-07-22 04:33] LABS: Basophils % 0.2 %; Hematocrit 28.5 % (35.3-44.9); Immature Granulocytes % 0.9 % (0-4); Immature Platelets 5.8 % (1.1-6.1); Lymphocytes # 1.2 K/mcL (0.6-4.6); Lymphocytes % 21.2 %; Mean Corpuscular HGB Conc 30.9 g/dL (31.6-35.5); Mean Corpuscular Hemoglobin 32.1 pg (28.0-33.3); Mean Platelet Volume 13.3 fL (9.4-12.4); Monocytes # 0.5 K/mcL (0.0-1.3); Monocytes % 8.4 %; Red Blood Count 2.74 M/mcL (3.82-4.97); Red Cell Distribution Width 14.5 % (11.5-14.5); White Blood Count 5.8 K/mcL (4.3-11.1)
[2020-07-22 04:34] LABS: Platelet Count 53 K/mcL (140-400)
[2020-07-22 04:52] LABS: Calcium 7.7 mg/dL (8.6-10.3); Potassium 4.7 mEq/L (3.5-5.1)
[2020-07-22] MEDS: Doxycycline 100 MG in 0.9 % Sodium Chloride Mini Bag 100 ML IVPB SCH (05:57)
[2020-07-22] MEDS: Budesonide/Formoterol 80/4.5 1 PUFF INH IH SCH ×2 (07:33→19:44)
[2020-07-22] MEDS: Insulin LISPRO 300 UNITS/3 ML VIAL SUBQ SCH ×4 (08:04→20:38)
[2020-07-22] MEDS: Furosemide 40 MG/4 ML VIAL IVP SCH ×3 (08:05→20:38)
[2020-07-22] MEDS: DilTIAZem CD (24hr) 180 MG CAP.ER.24H PO SCH (08:05)
[2020-07-22] MEDS: rOPINIRole 1 MG TABLET PO SCH ×3 (08:05→20:38)
[2020-07-22] MEDS: Topiramate 100 MG TABLET PO SCH ×2 (08:05→20:37)
[2020-07-22] MEDS: OLANZapine 5 MG TAB.RAPDIS PO SCH (08:05)
[2020-07-22] MEDS: Metoprolol XL (24 HR) Succ 50 MG TAB.ER.24H PO SCH (08:05)
[2020-07-22] MEDS: predniSONE 20 MG TABLET PO SCH (08:05)
[2020-07-22] MEDS: Insulin DETEMIR 100 UNIT/ML X5UNITS SUBQ SCH ×2 (08:26→20:42)
[2020-07-22] MEDS ORDERED: 0.9 % Sodium Chloride 250 ML IVC PRN (08:48)
[2020-07-22] MEDS ORDERED: *HR* Heparin 10,000 UNIT/10 ML VIAL IV PRN ×2 (08:48)
[2020-07-22 14:48] LABS: VBG Ionized Calcium 1.03 mmol/L (1.15-1.35)
[2020-07-22] MEDS ORDERED: Doxycycline 100 MG CAPSULE PO ONE (18:00)
[2020-07-22] MEDS ORDERED: Saline Nasal Spray 44 ML BOTTLE NS PRN (20:29)
[2020-07-22] MEDS: OLANZapine 10 MG TAB.RAPDIS PO SCH (20:37)
[2020-07-22] MEDS: traZODone 50 MG TABLET PO SCH (20:38)
[2020-07-23 03:11] LABS: VBG Ionized Calcium 1.02 mmol/L (1.15-1.35)
[2020-07-23 03:19] LABS: Eosinophils % 0.2 %; Hemoglobin 8.8 g/dL (11.5-15.4)
[2020-07-23 03:21] LABS: Hematocrit 28.1 % (35.3-44.9); Immature Granulocytes % 0.7 % (0-4); Immature Platelets 6.3 % (1.1-6.1); Lymphocytes # 0.8 K/mcL (0.6-4.6); Lymphocytes % 14.9 %; Mean Corpuscular HGB Conc 31.3 g/dL (31.6-35.5); Mean Corpuscular Hemoglobin 32.4 pg (28.0-33.3); Mean Corpuscular Volume 103.3 fL (83.0-100.0); Mean Platelet Volume 13.1 fL (9.4-12.4); Monocytes # 0.5 K/mcL (0.0-1.3); Monocytes % 8.7 %; Neutrophils # 4.2 K/mcL (1.6-8.9); Red Blood Count 2.72 M/mcL (3.82-4.97); Red Cell Distribution Width 14.5 % (11.5-14.5); Segmented Neutrophils % 75.5 %; White Blood Count 5.5 K/mcL (4.3-11.1)
[2020-07-23 03:29] LABS: Platelet Count 58 K/mcL (140-400)
[2020-07-23 03:36] LABS: Calcium 7.4 mg/dL (8.6-10.3); Potassium 4.5 mEq/L (3.5-5.1)
[2020-07-23] MEDS: Ipratropium/Albuterol Neb 3 ML IH SCH ×6 (03:44→23:37)
[2020-07-23] MEDS ORDERED: Calcium Gluconate 1gm/50mL 1 GM/50 ML BAG IVPB ONE (07:15)
[2020-07-23] MEDS: OLANZapine 5 MG TAB.RAPDIS PO SCH (07:54)
[2020-07-23] MEDS: predniSONE 20 MG TABLET PO SCH (07:54)
[2020-07-23] MEDS: rOPINIRole 1 MG TABLET PO SCH ×3 (07:54→20:05)
[2020-07-23] MEDS: DilTIAZem CD (24hr) 180 MG CAP.ER.24H PO SCH (07:54)
[2020-07-23] MEDS: Metoprolol XL (24 HR) Succ 50 MG TAB.ER.24H PO SCH (07:54)
[2020-07-23] MEDS: Topiramate 100 MG TABLET PO SCH ×2 (07:55→20:05)
[2020-07-23] MEDS: Insulin LISPRO 300 UNITS/3 ML VIAL SUBQ SCH ×4 (07:56→20:14)
[2020-07-23] MEDS: Furosemide 40 MG/4 ML VIAL IVP SCH ×3 (08:10→20:04)
[2020-07-23] MEDS: Insulin DETEMIR 100 UNIT/ML X5UNITS SUBQ SCH ×2 (09:00→20:14)
[2020-07-23] MEDS: Budesonide/Formoterol 80/4.5 1 PUFF INH IH SCH ×2 (11:56→19:53)
[2020-07-23] MEDS: OLANZapine 10 MG TAB.RAPDIS PO SCH (20:04)
[2020-07-23] MEDS: traZODone 50 MG TABLET PO SCH (20:05)
[2020-07-23] MEDS: Acetaminophen 325 MG TABLET PO PRN (23:26)
[2020-07-24] MEDS: Ipratropium/Albuterol Neb 3 ML IH SCH ×6 (03:49→23:58)
[2020-07-24 04:25] LABS: Hemoglobin 8.7 g/dL (11.5-15.4); Immature Platelets 7.1 % (1.1-6.1); Mean Corpuscular HGB Conc 31.1 g/dL (31.6-35.5); Mean Corpuscular Hemoglobin 32.2 pg (28.0-33.3); Mean Corpuscular Volume 103.7 fL (83.0-100.0); Mean Platelet Volume 13.6 fL (9.4-12.4); Red Blood Count 2.7 M/mcL (3.82-4.97); Red Cell Distribution Width 14.5 % (11.5-14.5); White Blood Count 6.1 K/mcL (4.3-11.1)
[2020-07-24 04:42] LABS: Calcium 7.4 mg/dL (8.6-10.3); Potassium 4.5 mEq/L (3.5-5.1)
[2020-07-24] MEDS ORDERED: 0.9 % Sodium Chloride 250 ML IVC PRN (07:17)
[2020-07-24] MEDS ORDERED: *HR* Heparin 10,000 UNIT/10 ML VIAL IV PRN ×2 (07:17→07:33)
[2020-07-24] MEDS: Budesonide/Formoterol 80/4.5 1 PUFF INH IH SCH ×2 (07:23→19:47)
[2020-07-24] MEDS ORDERED: 0.9 % Sodium Chloride 1,000 ML PRIME SCH (07:30)
[2020-07-24] MEDS: Insulin DETEMIR 100 UNIT/ML X5UNITS SUBQ SCH ×2 (08:37→20:34)
[2020-07-24] MEDS: Insulin LISPRO 300 UNITS/3 ML VIAL SUBQ SCH ×5 (08:37→20:31)
[2020-07-24] MEDS: Topiramate 100 MG TABLET PO SCH ×2 (08:37→20:33)
[2020-07-24] MEDS: OLANZapine 5 MG TAB.RAPDIS PO SCH (08:37)
[2020-07-24] MEDS: rOPINIRole 1 MG TABLET PO SCH ×3 (08:37→20:33)
[2020-07-24] MEDS: predniSONE 20 MG TABLET PO SCH (08:38)
[2020-07-24] MEDS: Furosemide 40 MG/4 ML VIAL IVP SCH ×3 (08:38→20:33)
[2020-07-24] MEDS ORDERED: 0.9 % Sodium Chloride 500 ML ONE ×2 (11:49→14:10)
[2020-07-24] MEDS: DilTIAZem CD (24hr) 180 MG CAP.ER.24H PO SCH (12:37)
[2020-07-24] MEDS: Metoprolol XL (24 HR) Succ 50 MG TAB.ER.24H PO SCH (12:37)
[2020-07-24] MEDS ORDERED: Heparin 1,000 UNITS/500 mL 500 ML ONE (13:41)
[2020-07-24] MEDS ORDERED: *HR* FentaNYL (PF) 100 MCG/2 ML VIAL IVP ONE (14:04)
[2020-07-24] MEDS ORDERED: Clindamycin 600 MG/50 ML 600 MG/50 ML IV.SOLN IVPB ONE (14:05)
[2020-07-24] MEDS ORDERED: *HR* FentaNYL (PF) 100 MCG/2 ML VIAL ONE (14:10)
[2020-07-24] MEDS ORDERED: *HR* Heparin 5,000 UNIT/ML VIAL ONE (14:29)
[2020-07-24 17:39] LABS: Hepatitis B Surface Antigen Nonreactive (Nonreactive)
[2020-07-24 18:08] LABS: Hepatitis B Core IgM Nonreactive (Nonreactive)
[2020-07-24 18:09] LABS: Hepatitis C Virus Antibody Nonreactive (Nonreactive)
[2020-07-24 18:10] LABS: Hepatitis A Antibody IgM Nonreactive (Nonreactive)
[2020-07-24] MEDS: traZODone 50 MG TABLET PO SCH (20:33)
[2020-07-24] MEDS: OLANZapine 10 MG TAB.RAPDIS PO SCH (20:33)
[2020-07-25] MEDS: Acetaminophen 325 MG TABLET PO PRN (00:27)
[2020-07-25 01:54] LABS: Hemoglobin 9.1 g/dL (11.5-15.4); Mean Platelet Volume 13.9 fL (9.4-12.4)
[2020-07-25 01:56] LABS: Eosinophils % 0.2 %; Hematocrit 28.8 % (35.3-44.9); Immature Granulocytes % 0.6 % (0-4); Immature Platelets 5.7 % (1.1-6.1); Lymphocytes # 0.8 K/mcL (0.6-4.6); Mean Corpuscular HGB Conc 31.6 g/dL (31.6-35.5); Mean Corpuscular Hemoglobin 33.3 pg (28.0-33.3); Mean Corpuscular Volume 105.5 fL (83.0-100.0); Monocytes # 0.5 K/mcL (0.0-1.3); Red Blood Count 2.73 M/mcL (3.82-4.97); Red Cell Distribution Width 14.3 % (11.5-14.5); Segmented Neutrophils % 75.2 %; White Blood Count 5.3 K/mcL (4.3-11.1)
[2020-07-25 01:59] LABS: Platelet Count 61 K/mcL (140-400)
[2020-07-25 02:14] LABS: Calcium 7.3 mg/dL (8.6-10.3); Potassium 4.5 mEq/L (3.5-5.1)
[2020-07-25 02:16] LABS: Magnesium 1.6 mg/dL (1.6-2.6); Phosphorous 4.5 mg/dL (2.7-4.5)
[2020-07-25] MEDS: Ipratropium/Albuterol Neb 3 ML IH SCH ×6 (03:54→23:59)
[2020-07-25] MEDS: Budesonide/Formoterol 80/4.5 1 PUFF INH IH SCH ×2 (07:36→19:51)
[2020-07-25] MEDS: Insulin LISPRO 300 UNITS/3 ML VIAL SUBQ SCH ×4 (08:27→22:10)
[2020-07-25] MEDS: Insulin DETEMIR 100 UNIT/ML X5UNITS SUBQ SCH ×2 (08:41→22:10)
[2020-07-25] MEDS: Topiramate 100 MG TABLET PO SCH ×2 (08:41→22:08)
[2020-07-25] MEDS: predniSONE 20 MG TABLET PO SCH (08:41)
[2020-07-25] MEDS: Furosemide 40 MG/4 ML VIAL IVP SCH ×3 (08:41→22:09)
[2020-07-25] MEDS: rOPINIRole 1 MG TABLET PO SCH ×3 (08:41→22:07)
[2020-07-25] MEDS: Metoprolol XL (24 HR) Succ 50 MG TAB.ER.24H PO SCH (08:41)
[2020-07-25] MEDS: OLANZapine 5 MG TAB.RAPDIS PO SCH (08:41)
[2020-07-25] MEDS: DilTIAZem CD (24hr) 180 MG CAP.ER.24H PO SCH (08:41)
[2020-07-25] MEDS ORDERED: *HR* Heparin 10,000 UNIT/10 ML VIAL IV PRN (11:04)
[2020-07-25] MEDS ORDERED: 0.9 % Sodium Chloride 250 ML IVC PRN (11:04)
[2020-07-25] MEDS ORDERED: 0.9 % Sodium Chloride 1,000 ML PRIME SCH (11:15)
[2020-07-25] MEDS: OLANZapine 10 MG TAB.RAPDIS PO SCH (22:07)
[2020-07-25] MEDS: traZODone 50 MG TABLET PO SCH (22:09)
[2020-07-26] MEDS: Ipratropium/Albuterol Neb 3 ML IH SCH ×3 (03:44→11:12)
[2020-07-26 05:02] LABS: Hemoglobin 9.3 g/dL (11.5-15.4)
[2020-07-26 05:04] LABS: Hematocrit 30.3 % (35.3-44.9); Immature Platelets 8.8 % (1.1-6.1); Mean Corpuscular HGB Conc 30.7 g/dL (31.6-35.5); Mean Corpuscular Hemoglobin 32.4 pg (28.0-33.3); Mean Corpuscular Volume 105.6 fL (83.0-100.0); Mean Platelet Volume 13.9 fL (9.4-12.4); Red Blood Count 2.87 M/mcL (3.82-4.97); White Blood Count 6.4 K/mcL (4.3-11.1)
[2020-07-26 05:18] LABS: Calcium 7.3 mg/dL (8.6-10.3); Potassium 4.4 mEq/L (3.5-5.1)
[2020-07-26] MEDS: Budesonide/Formoterol 80/4.5 1 PUFF INH IH SCH (07:25)
[2020-07-26 07:52] VITALS: BP 154/53
[2020-07-26] MEDS: rOPINIRole 1 MG TABLET PO SCH (07:52)
[2020-07-26] MEDS: Acetaminophen 325 MG TABLET PO PRN (07:52)
[2020-07-26] MEDS: OLANZapine 5 MG TAB.RAPDIS PO SCH (07:52)
[2020-07-26] MEDS: predniSONE 20 MG TABLET PO SCH (07:53)
[2020-07-26] MEDS: Topiramate 100 MG TABLET PO SCH (07:53)
[2020-07-26] MEDS: DilTIAZem CD (24hr) 180 MG CAP.ER.24H PO SCH (07:53)
[2020-07-26] MEDS: Metoprolol XL (24 HR) Succ 50 MG TAB.ER.24H PO SCH (07:53)
[2020-07-26] MEDS: Insulin DETEMIR 100 UNIT/ML X5UNITS SUBQ SCH (07:54)
[2020-07-26] MEDS: Furosemide 40 MG/4 ML VIAL IVP SCH (07:54)
[2020-07-26] MEDS: Insulin LISPRO 300 UNITS/3 ML VIAL SUBQ SCH (07:55)
[2020-07-26] MEDS ORDERED: Furosemide 40 MG TABLET PO SCH (08:03)
== END 2020-07-26 11:19 | disposition home health service (06) | DRG 469 ==
LOC: 3NENU → SUATTDRO 01:37 → 3BNU 15:37 → SUATTDRO 07-15 11:39 → 2ANU 07-18 16:26
PROVIDERS: ADMIT Family Medicine; ATTEND Internal Medicine
PROC: ENDOCBX (2020-07-19 07:55)
PROC: ENDOEBX (2020-07-19 07:55)
PROC: IRPERMA (2020-07-24 12:00)